=== PATIENT | female | born 1965 | race Caucasian/White ===

== ENCOUNTER 2016-07-22 19:59 | Emergency (ER) | payer OTHER ==
[~2016-07-22 19:59] MED LIST: /AUGM875TA; BIRTH CONTROL PILL; SM I100T
--- NOTE | 2016-07-22 22:15 | EDDOCDS ---
Physician Documentation [facility] Name: Katya Mendoza Age: 51 yrs Sex: Female : 1965 Arrival Date: 07/22/2016 Time: 19:59 Bed TR7 Private MD: Unknown, Family Dr Disposition: 07/22/16 22:05 Discharged to Home/Self Care. Impression: Low back pain - left flank, resolved prior to exam. - Condition is Stable. - Discharge Instructions: Flank Pain, [id number]. - Medication Reconciliation, Local Pharmacy Hours form. - Follow up: Danial Adames; When: Call to arrange an appointment; Reason: Further diagnostic work-up, Recheck today's complaints, Continuance of care. - Problem is new. - Symptoms are resolved. Historical: - Allergies: Codeine Sulfate (Vomit); - Home Meds: 1. none - PMHx: none; - PSHx: bilateral foot surgery; Hernia repair; ureteroscopy; Varicose Vein Repair; - Social history: Smoking status: Patient states was never smoker of tobacco. No barriers to communication noted, The patient speaks fluent French. - Family history: Not pertinent. - : The pt / caregiver states he / she is not on anticoagulants. Home medication list is obtained from the patient. - Exposure Risk Screening:: None identified. 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 3 in. (160.02 cm) (R); Pain 10/10; 20:01 Body Mass Index 23.91 (61.23 kg, 160.02 cm) cmb MDM: 22:01 Dispense Urine Strainer ordered. btw Signatures: Macie EscuderoRN RN rs3 Gumaro Lanza PA PA btw Jackie RazoRN RN ld5 MTDD
--- NOTE | 2016-07-22 22:15 | EDDOCDS ---
[facility] Name: Katya Mendoza Age: 51 yrs Sex: Female : 1965 Arrival Date: 07/22/2016 Time: 19:59 Bed TR7 Private MD: Unknown, Family Dr Diagnosis: Low back pain-left flank, resolved prior to exam Presentation: 07/22 20:03 Presenting complaint: Patient states: left flank pain started 3 hours ago. h/o kidney rs3 stone. cough, cold, vomiting since tuesday. Acute neurological deficits are not present. Mechanism of Injury: No Mechanism of Injury. Adult Sepsis Screening: The patient does not have new or worsening altered mentation. Patient's respiratory rate is less than 22. Systolic blood pressure is greater than 100. Patient has a qSOFA score of 0- Negative Sepsis Screen. Suicide/Homicide risk assessment- the patient denies having any suicidal and/or homicidal ideations and does not present with any other emotional, behavioral or mental health complaints. 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 Transition of care: patient was not received from another setting of care. 20:03 Acuity: JUAN FRANCISCO Level 3 rs3 20:03 Method Of Arrival: Walkin/Carried/Asstd rs3 Triage Assessment: 20:05 General: Appears in no apparent distress. Pain: Location: left mid back. HIV screening rs3 NA for this visit Offered previously. Musculoskeletal: Reports Pain is 10 out of 10 on a pain scale. 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 none - PMHx: none; - PSHx: bilateral foot surgery; Hernia repair; ureteroscopy; Varicose Vein Repair; - Social history: Smoking status: Patient states was never smoker of tobacco. No barriers to communication noted, The patient speaks fluent Pashto. - Family history: Not pertinent. - : The pt / caregiver states he / she is not on anticoagulants. Home medication list is obtained from the patient. - Exposure Risk Screening:: None identified. Screenin:11 Screening information is obtained from the patient. Fall risk: No risks identified. ld5 Assistance ADL's: requires no assistance with activities of daily living. Abuse/DV Screen: The patient / caregiver reports he/she is: not in a situation that causes fear, pain or injury. Nutritional screening: No deficits noted. Advance Directives: Currently, there is no health care proxy. home support is adequate. Assessment: 22:11 General: Appears in no apparent distress, Behavior is appropriate for age. Pain: Denies ld5 pain. Neurological: Level of Consciousness is awake, alert. Respiratory: Airway is patent Respiratory effort is even, unlabored. GI: Denies nausea, vomiting. : Denies burning with urination, pain with urination. Vital Signs: 20:01 BP 145 / 94; Pulse 87; Resp 16; Temp 98.8(O); Pulse Ox 100% ; Weight 61.23 kg (R); cmb Height 5 ft. 3 in. (160.02 cm) (R); Pain 10/10; 20:01 Body Mass Index 23.91 (61.23 kg, 160.02 cm) cmb Vitals: 20:01 Log In Time: July 22, 2016 at 19:59. cmb ED Course: 20:00 Patient visited by Chelita Barnes. cmb 20:00 Patient moved to Waiting cmb 20:01 NO PRIMARY PHYSICIAN, . is Private Physician. cmb 20:01 Unknown, Family Dr is Private Physician. cmb 20:02 Patient moved to Pre RCE cmb 20:04 Triage Initiated rs3 21:31 Patient moved to Triage 3 sew 21:51 Gumaro Lanza PA is PHCP. btw 21:51 Will Salcedo DO is Attending Physician. btw 21:56 Patient visited by Gumaro Lanza PA. btw 22:01 Danial Adames is Referral Physician. btw 22:11 Patient moved to TR7 ld5 22:11 The patient / caregiver is instructed regarding the plan of care and ED course. ld5 22:11 No IV's were initiated during this patient's visit. No procedures done that require ld5 assistance. 22:14 Patient visited by Jackie Razo RN. ld5 Order Results: There are currently no results for this order. Outcome: 22:05 Discharge ordered by Provider. btw 22:11 Discharge Assessment: Patient awake, alert and oriented x 3. No cognitive and/or ld5 functional deficits noted. Patient verbalized understanding of disposition instructions. patient administered narcotics - no. The following High Risk Discharge criteria are identified: None. Discharged to home ambulatory. Condition: stable. Discharge instructions given to patient, Instructed on discharge instructions, follow up and referral plans. Demonstrated understanding of instructions, Pt was receptive of discharge instructions/ teaching. No special radiology studies were completed. Property :Personal belongings accompany Pt. 22:14 Patient left the ED. ld5 Signatures: Macie Escudero RN RN rs3 Gumaro Lanza PA PA btw Dickerson, Laura, RN RN ld5 Chelita Barnes Sarah sew MTDD
[2016-07-23] MEDS ORDERED: VITMTA PO (15:53)
[2016-07-23] MEDS ORDERED: [UNRECOGNIZED DRUG - CODE] PO (15:53)
[2016-07-23] MEDS ORDERED: IBUP60TA PO (15:53)
[2016-07-23] MEDS ORDERED: NORC7.5T PO (18:20)
[2016-07-23] MEDS ORDERED: BACT800T5 PO (18:20)
[2016-07-23] MEDS ORDERED: OXYB5TA PO (18:20)
--- NOTE | 2016-07-24 23:15 | EDDOCDS ---
Nurse's Notes [facility] Name: Katya Mendoza Age: 51 yrs Sex: Female : 1965 Arrival Date: 07/22/2016 Time: 19:59 Bed TR7 Private MD: Unknown, Family Dr Diagnosis: Low back pain-left flank, resolved prior to exam Presentation: 07/22 20:03 Presenting complaint: Patient states: left flank pain started 3 hours ago. h/o kidney rs3 stone. cough, cold, vomiting since tuesday. Acute neurological deficits are not present. Mechanism of Injury: No Mechanism of Injury. Adult Sepsis Screening: The patient does not have new or worsening altered mentation. Patient's respiratory rate is less than 22. Systolic blood pressure is greater than 100. Patient has a qSOFA score of 0- Negative Sepsis Screen. Suicide/Homicide risk assessment- the patient denies having any suicidal and/or homicidal ideations and does not present with any other emotional, behavioral or mental health complaints. 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 Transition of care: patient was not received from another setting of care. 20:03 Acuity: JUAN FRANCISCO Level 3 rs3 20:03 Method Of Arrival: Walkin/Carried/Asstd rs3 Triage Assessment: 20:05 General: Appears in no apparent distress. Pain: Location: left mid back. HIV screening rs3 NA for this visit Offered previously. Musculoskeletal: Reports Pain is 10 out of 10 on a pain scale. 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 none - PMHx: none; - PSHx: bilateral foot surgery; Hernia repair; ureteroscopy; Varicose Vein Repair; - Social history: Smoking status: Patient states was never smoker of tobacco. No barriers to communication noted, The patient speaks fluent Georgian. - Family history: Not pertinent. - : The pt / caregiver states he / she is not on anticoagulants. Home medication list is obtained from the patient. - Exposure Risk Screening:: None identified. Screenin:11 Screening information is obtained from the patient. Fall risk: No risks identified. ld5 Assistance ADL's: requires no assistance with activities of daily living. Abuse/DV Screen: The patient / caregiver reports he/she is: not in a situation that causes fear, pain or injury. Nutritional screening: No deficits noted. Advance Directives: Currently, there is no health care proxy. home support is adequate. Assessment: 22:11 General: Appears in no apparent distress, Behavior is appropriate for age. Pain: Denies ld5 pain. Neurological: Level of Consciousness is awake, alert. Respiratory: Airway is patent Respiratory effort is even, unlabored. GI: Denies nausea, vomiting. : Denies burning with urination, pain with urination. Vital Signs: 20:01 BP 145 / 94; Pulse 87; Resp 16; Temp 98.8(O); Pulse Ox 100% ; Weight 61.23 kg (R); cmb Height 5 ft. 3 in. (160.02 cm) (R); Pain 10/10; 20:01 Body Mass Index 23.91 (61.23 kg, 160.02 cm) cmb Vitals: 20:01 Log In Time: July 22, 2016 at 19:59. cmb ED Course: 20:00 Patient visited by Chelita Barnes. cmb 20:00 Patient moved to Waiting cmb 20:01 NO PRIMARY PHYSICIAN, . is Private Physician. cmb 20:01 Unknown, Family Dr is Private Physician. cmb 20:02 Patient moved to Pre RCE cmb 20:04 Triage Initiated rs3 21:31 Patient moved to Triage 3 sew 21:51 Gumaro Lanza PA is PHCP. btw 21:51 Will Slacedo DO is Attending Physician. btw 21:56 Patient visited by Gumaro Lanza PA. btw 22:01 Danial Adames is Referral Physician. btw 22:11 Patient moved to TR7 ld5 22:11 The patient / caregiver is instructed regarding the plan of care and ED course. ld5 22:11 No IV's were initiated during this patient's visit. No procedures done that require ld5 assistance. 22:14 Patient visited by Jackie Razo RN. ld5 07/23 10:19 T-Sheet-- Draft Copy was scanned into [employer] and attached to record. gb Order Results: There are currently no results for this order. Outcome: 07/22 22:05 Discharge ordered by Provider. btw 22:11 Discharge Assessment: Patient awake, alert and oriented x 3. No cognitive and/or ld5 functional deficits noted. Patient verbalized understanding of disposition instructions. patient administered narcotics - no. The following High Risk Discharge criteria are identified: None. Discharged to home ambulatory. Condition: stable. Discharge instructions given to patient, Instructed on discharge instructions, follow up and referral plans. Demonstrated understanding of instructions, Pt was receptive of discharge instructions/ teaching. No special radiology studies were completed. Property :Personal belongings accompany Pt. 22:14 Patient left the ED. ld5 Signatures: Huma Phan, Reg Reg gb Macie Escudero,RN RN rs3 Gumaro aLnza PA PA btw Dickerson, LauraRN RN ld5 Chelita Barnes Sarah sew Chart Complete MTDMiranda
--- NOTE | 2016-07-24 23:15 | EDDOCDS ---
Physician Documentation [facility] Name: Katya Mendoza Age: 51 yrs Sex: Female : 1965 Arrival Date: 07/22/2016 Time: 19:59 Bed TR7 Private MD: Unknown, Family Dr Disposition: 07/22/16 22:05 Discharged to Home/Self Care. Impression: Low back pain - left flank, resolved prior to exam. - Condition is Stable. - Discharge Instructions: Flank Pain, [id number]. - Medication Reconciliation, Local Pharmacy Hours form. - Follow up: Danial Adames; When: Call to arrange an appointment; Reason: Further diagnostic work-up, Recheck today's complaints, Continuance of care. - Problem is new. - Symptoms are resolved. Historical: - Allergies: Codeine Sulfate (Vomit); - Home Meds: 1. none - PMHx: none; - PSHx: bilateral foot surgery; Hernia repair; ureteroscopy; Varicose Vein Repair; - Social history: Smoking status: Patient states was never smoker of tobacco. No barriers to communication noted, The patient speaks fluent Yoruba. - Family history: Not pertinent. - : The pt / caregiver states he / she is not on anticoagulants. Home medication list is obtained from the patient. - Exposure Risk Screening:: None identified. 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 3 in. (160.02 cm) (R); Pain 10/10; 20:01 Body Mass Index 23.91 (61.23 kg, 160.02 cm) cmb MDM: 22:01 Dispense Urine Strainer ordered. btw 22:20 Financial registration complete. [email or web address] 07/23 10:19 T-Sheet-- Draft Copy was scanned into [employer] and attached to record. gb Signatures: Huma Phan, Reg Reg gb Macie Escudero RN RN rs3 Gumaro Lanza PA PA btw Jackie Razo RN RN ld5 Angie Garcia, Reg Reg ks16 The chart was reviewed and I authenticate all verbal orders and agree with the evaluation and treatment provided.Attachments: 10:19 T-Sheet-- Draft Copy gb Chart Complete MTDD
--- NOTE | 2016-07-24 23:15 | EDDOCDS ---
Physician Documentation [facility] Name: Katya Mendoza Age: 51 yrs Sex: Female : 1965 Arrival Date: 07/22/2016 Time: 19:59 Bed TR7 Private MD: Unknown, Family Dr Disposition: 07/22/16 22:05 Discharged to Home/Self Care. Impression: Low back pain - left flank, resolved prior to exam. - Condition is Stable. - Discharge Instructions: Flank Pain, [id number]. - Medication Reconciliation, Local Pharmacy Hours form. - Follow up: Danial Adames; When: Call to arrange an appointment; Reason: Further diagnostic work-up, Recheck today's complaints, Continuance of care. - Problem is new. - Symptoms are resolved. Historical: - Allergies: Codeine Sulfate (Vomit); - Home Meds: 1. none - PMHx: none; - PSHx: bilateral foot surgery; Hernia repair; ureteroscopy; Varicose Vein Repair; - Social history: Smoking status: Patient states was never smoker of tobacco. No barriers to communication noted, The patient speaks fluent Uzbek. - Family history: Not pertinent. - : The pt / caregiver states he / she is not on anticoagulants. Home medication list is obtained from the patient. - Exposure Risk Screening:: None identified. 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 3 in. (160.02 cm) (R); Pain 10/10; 20:01 Body Mass Index 23.91 (61.23 kg, 160.02 cm) cmb MDM: 22:01 Dispense Urine Strainer ordered. btw 22:20 Financial registration complete. [email or web address] 07/23 10:19 T-Sheet-- Draft Copy was scanned into [employer] and attached to record. gb Signatures: Huma Phan, Reg Reg gb Macie Escudero RN RN rs3 Gumaro Lanza PA PA btw Jackie Razo RN RN ld5 Angie Garcia, Reg Reg ks16 The chart was reviewed and I authenticate all verbal orders and agree with the evaluation and treatment provided.Attachments: 10:19 T-Sheet-- Draft Copy gb Chart Complete MTDD
== END 2016-07-22 22:14 | disposition home or self-care (01) ==
LOC: M ED 19:59
DX: R10.9 Unspecified abdominal pain (principal); Z87.442 Personal history of urinary calculi; Z88.5 Allergy status to narcotic agent

== ENCOUNTER → 2016-07-23 | Day surgery (SDC) | payer OTHER ==
[~2016-07-23] VITALS: Ht 160 cm; Wt 61.2 kg
[~2016-07-23] MED LIST changes: +BACT800T5 PO; +CONRAY-60 60% 50ML VIAL (Q9961) As Ordered ONE; +CONRAY-60 60% 50ML VIAL (Q9961) XX ONE; +IBUP60TA PO; +KETOROLAC 30 MG/ML VIAL (J1885) As Ordered ONE; +LIDOCAINE 2% INJ 100 MG/5 ML SDV (FOR ANES.) As Ordered ONE; +LR 1,000 ML IV SCH; +LevoFLOXacin 500 MG in APPROPRIATE DILUENT 1 EA IV ONE; +LevoFLOXacin(LEVAQUIN)500 MG/100 ML BAG (J1956) As Ordered ONE; +METOCLOPRAMIDE INJ 10MG/2ML VIAL (J2765) As Ordered ONE; +MIDAZOLAM INJ 2 MG/2 ML VIAL (J2250) As Ordered ONE; +MORPHINE 4 MG/ML 1ML SYRINGE As Ordered ONE; +NORC7.5T PO; +ONDANSETRON 4MG/2ML VIAL (J2405) As Ordered ONE; +ONDANSETRON 4MG/2ML VIAL (J2405) IV PRN; +OXYB5TA PO; +PERCOCET 5MG/325MG TAB As Ordered ONE; +PERCOCET 5MG/325MG TAB PO PRN; +PROPOFOL 200 MG/20 ML VIAL As Ordered ONE; +VITMTA PO; +[UNRECOGNIZED DRUG - CODE] PO; +fentaNYL 100 MCG/2 ML INJECTION (J3010) As Ordered ONE; +fentaNYL 100 MCG/2 ML INJECTION (J3010) IV PRN
[2016-07-23 13:54] LABS: BASO % 0.5 % (0.0-1.0); EOS # 0.1 K/mm3 (0.0-0.50); EOS % 0.6 % (0.0-3.0); LARGE UNSTAINED CELL # 0.3 K/mm3 (0.0-0.4); LARGE UNSTAINED CELL % 2.7 % (0.0-4.0); LYMPH # 1.5 K/mm3 (1.5-4.5); LYMPH % 14.8 % (24.0-44.0); MEAN CORPUSCULAR HEMOGLOBIN 32.6 pg (27.0-33.0); MEAN CORPUSCULAR HGB CONC 35.8 g/dl (32.0-36.5); MEAN CORPUSCULAR VOLUME 91.1 fl (80.0-96.0); MONO # 0.4 K/mm3 (0.0-0.8); MONO % 4.2 % (0.0-5.0); NEUTROPHILS # 7.9 K/mm3 (1.8-7.7); NEUTROPHILS % 77.3 % (36.0-66.0); PLATELET COUNT, AUTOMATED 228 k/mm3 (150-450); WHITE BLOOD COUNT 10.2 K/mm3 (4.0-10.0)
[2016-07-23 13:59] LABS: ANION GAP 9 MEQ/L (8-16); BLOOD UREA NITROGEN 21 MG/DL (7-18); CALCIUM LEVEL 8.9 MG/DL (8.5-10.1); CARBON DIOXIDE LEVEL 28 MEQ/L (21-32); CHLORIDE LEVEL 103 MEQ/L (98-107); CREATININE FOR GFR 0.89 MG/DL (0.55-1.02); GLOMERULAR FILTRATION RATE > 60.0 (>58); GLUCOSE, FASTING 101 MG/DL (70-105); POTASSIUM SERUM 3.3 MEQ/L (3.5-5.1); SODIUM LEVEL 140 MEQ/L (136-145)
--- NOTE | 2016-07-23 14:29 | REP ---
CT of the abdomen and pelvis without contrast, 07/23/2016 Indication: left flank pain, renal colic Comparison: CT abdomen pelvis 07/27/2013 Findings: Lung bases are clear bilaterally. Liver, spleen, pancreas are normal. Gallbladder without stones or wall thickening. There is no biliary dilatation. Adrenal glands are normal. There is moderate left hydronephrosis and hydroureter secondary to a 9 mm obstructing calculus the left lower pelvis, above the ureteral vesicle junction. Additionally there are multiple additional lower pelvic calculi, left greater than right which are likely phleboliths although additional small obstructing left ureteral calculi just above the left ureteral vesicle junction not excluded. There is a left perinephric stranding which represents interval change. Mild right renal pelviectasis is noted. However there are no obstructing right ureteral calculi. 3 mm calculus in the right upper pelvis on image 92 series 201 likely represents an appendicolith adjacent to right ureter and is stable. There is a small hiatal hernia of 3 cm diameter. Stomach and small bowel are within normal limits. The terminal ileum and the appendix are without inflammation. Abdominal aorta is of normal course and caliber Bladder is partially contracted. The uterus is within normal limits. There are no adnexal masses. There has been previous ventral hernia repair with a small mesh. There is no free air or ascites. Sclerosis is identified within the right ilium, abutting right SI joint consistent with nonspecific assymetric sacro ileitis . Impression 1. Edematous changes left kidney and perinephric stranding. Moderate to large left hydronephrosis and hydroureter secondary to a 9 mm obstructing calculus in the left lower pelvis above ureterovesical junction. Additionally there are smaller left lower pelvic calculi ,likely phleboliths, although a small distal ureteral calculus cannot be completely excluded. 2 .Mild right renal pelviectasis without obstructing right ureteral calculus. 3. Multiple appendicoliths are seen within the appendiceal lumen which lies adjacent to the right ureter . Signed by Leila Leon MD 07/23/2016 02:21 P
[2016-07-23 14:35] LABS: CALCIUM OXALATE CRYSTALS SMALL
--- NOTE | 2016-07-23 16:48 | EDDOCDS ---
Physician Documentation [facility] Name: Katya Mendoza Age: 51 yrs Sex: Female : 1965 Arrival Date: 07/23/2016 Time: 12:03 Bed I7 / 29 Private MD: NO PRIMARY PHYSICIAN, . Disposition: 07/23/16 15:35 Hospitalization ordered by Danial Adames for Inpatient Admission. Preliminary diagnosis is Hydronephrosis with renal and ureteral calculous obstruction - left 9mm UVJ obstructing stone. - Bed requested for Admit. - Status is Inpatient Admission. jmk - Condition is Stable. - Problem is new. - Symptoms are unchanged. Historical: - Allergies: Codeine Sulfate (Vomit); - Home Meds: 1. none - PMHx: Kidney stones; - PSHx: bilateral foot surgery; Hernia repair; ureteroscopy; Varicose Vein Repair; - Social history: Smoking status: Patient states was never smoker of tobacco. No barriers to communication noted, The patient speaks fluent Occitan, Speaks appropriately for age. - Family history: Not pertinent. - : The pt / caregiver states he / she is not on anticoagulants. Home medication list is obtained from the patient. - Exposure Risk Screening:: None identified. 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 3 in. (160.02 cm) (R); 12:38 BP 156 / 96 RA Sitting (man/lg); jb5 15:05 BP 132 / 82; Pulse 73; Resp 18; Temp 98.4; Pulse Ox 98% on R/A; Pain 5/10; nb2 16:28 BP 146 / 86; Pulse 86; Resp 16; Temp 97.4(O); Pulse Ox 100% ; jf3 12:05 Body Mass Index 23.91 (61.23 kg, 160.02 cm) dd6 MDM: 12:36 Recheck B/P ordered. dt4 12:37 Urinalysis Ordered. EDMS 12:37 Urine Culture Ordered. EDMS 13:09 IV Saline Lock ordered. ar2 13:09 NS 0.9% 1000 ml IV at bolus once ordered. ar2 13:09 ketorolac 30 mg IVP once ordered. ar2 13:09 Ondansetron 4 mg IVP once ordered. ar2 13:10 CT ABD & PELVIS: No Contrast Ordered. EDMS 13:10 CBC with Diff Ordered. EDMS 13:10 MED Profile Ordered. EDMS 13:12 Financial registration complete. lg 13:13 [facility] Payment Agreement was scanned into [employer] and attached to record. lg 14:30 CBC with Diff Reviewed. ar2 14:30 MED Profile Reviewed. ar2 14:32 morphine 4 mg IVP once ordered. ar2 14:43 Urinalysis Reviewed. ar2 14:43 CT ABD & PELVIS: No Contrast Reviewed. ar2 15:37 BED REQUEST+ADM ordered. EDMS 16:28 NPO FOR TEST/PROCEDURE ordered. EDMS 16:38 Admission Orders was scanned into [employer] and attached to record. lbd 16:44 levofloxacin 500 mg IVPB once over 60 mins ordered. k Administered Medications: 13:29 Drug: ketorolac 30 mg [ketorolac 30 mg/mL (1 mL) injection solution (1 mL)] Route: IVP; [facility] Site: left antecubital; 13:29 Drug: Ondansetron 4 mg Route: IVP; Site: left antecubital; edithk 13:33 Drug: NS 0.9% 1000 ml Route: IV; Rate: bolus; Site: left antecubital; jmk 14:43 Drug: morphine 4 mg Route: IVP; Site: left antecubital; jmk 16:44 Drug: levofloxacin 500 mg Route: IVPB; Infused Over: 60 mins; Site: left antecubital; [facility] Signatures: Dispatcher [employer] EDMS Nu Huber, [facility] lbd Arturo Quinn RN RN jmk Michelson, Staci, RN RN srm Ganter, LoriLee, Milan Yates lg Oscar Arnett PA-C PA-C ar2 Clare Foster PA-C PARodolfo dt4 The chart was reviewed and I authenticate all verbal orders and agree with the evaluation and treatment provided.Attachments: 13:13 [facility] Payment Agreement lg 16:38 Admission Orders lbd MTDD
--- NOTE | 2016-07-23 16:48 | EDDOCDS ---
Nurse's Notes [facility] Name: Katya Mendoza Age: 51 yrs Sex: Female : 1965 Arrival Date: 07/23/2016 Time: 12:03 Bed I7 / 29 Private MD: NO PRIMARY PHYSICIAN, . Diagnosis: Hydronephrosis with renal and ureteral calculous obstruction-left 9mm UVJ obstructing stone Presentation: 07/23 12:16 Presenting complaint: Patient states: pain in left side- seen here last night for same. srm dx kidney stone. pt states by the time she got to see provider pain had gone away. Acute neurological deficits are not present. Mechanism of Injury: No Mechanism of Injury. Adult Sepsis Screening: The patient does not have new or worsening altered mentation. Patient's respiratory rate is less than 22. Systolic blood pressure is greater than 100. Patient has a qSOFA score of 0- Negative Sepsis Screen. Acuity level changed due to. Suicide/Homicide risk assessment- the patient denies having any suicidal and/or homicidal ideations and does not present with any other emotional, behavioral or mental health complaints. Status: Patient is not a tax services specialist or dependent. Transition of care: patient was not received from another setting of care. 12:16 Acuity: JUAN FRANCISCO Level 3 srm 12:16 Method Of Arrival: Walkin/Carried/Asstd srm Triage Assessment: 12:19 General: Appears in no apparent distress, Behavior is appropriate for age, cooperative. srm Pain: Pain currently is 10 out of 10 on a pain scale. HIV screening NA for this visit Offered previously. Musculoskeletal: Reports left flank pain. 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 none - PMHx: Kidney stones; - PSHx: bilateral foot surgery; Hernia repair; ureteroscopy; Varicose Vein Repair; - Social history: Smoking status: Patient states was never smoker of tobacco. No barriers to communication noted, The patient speaks fluent Uzbek, Speaks appropriately for age. - Family history: Not pertinent. - : The pt / caregiver states he / she is not on anticoagulants. Home medication list is obtained from the patient. - Exposure Risk Screening:: None identified. Screenin:30 Screening information is obtained from the patient. Fall risk: No risks identified. jmk Assistance ADL's: requires no assistance with activities of daily living. Abuse/DV Screen: The patient / caregiver reports he/she is:. Nutritional screening: No deficits noted. Advance Directives: Currently, there is no health care proxy. There is no active DNR order. There is no living will. There is no Power of Health And Safety Inspector. Advance directive information has not previously been placed in an [facility] medical record. home support is adequate. Assessment: 13:30 General: Appears in no apparent distress, skin warm and dry, color satisfactory. moist jmk pink oral mucosa. abd soft and non distended with bowel sounds present x 4. Indicates left flank pain. GI: Abdomen is flat, non- distended Bowel sounds present X 4 quads. 14:16 Adult Sepsis Screening: The patient does not have new or worsening altered mentation. kc3 Patient's respiratory rate is less than 22. Systolic blood pressure is greater than 100. Patient has a qSOFA score of 0- Negative Sepsis Screen. 15:07 General: Appears states pain has decreased to 5/10. jmk 16:29 General: Appears states pain is still 5/10, but presently with very casual jf3 presentation. IV patent to left AC space. to OR. Vital Signs: 12:05 BP 175 / 107; Pulse 73; Resp 18 S; Temp 97.1(O); Pulse Ox 100% on R/A; Weight 61.23 kg dd6 (R); Height 5 ft. 3 in. (160.02 cm) (R); 12:38 BP 156 / 96 RA Sitting (man/lg); jb5 15:05 BP 132 / 82; Pulse 73; Resp 18; Temp 98.4; Pulse Ox 98% on R/A; Pain 5/10; nb2 16:28 BP 146 / 86; Pulse 86; Resp 16; Temp 97.4(O); Pulse Ox 100% ; jf3 12:05 Body Mass Index 23.91 (61.23 kg, 160.02 cm) dd6 Vitals: 12:05 Log In Time: July 23, 2016 at 12:03. dd6 ED Course: 12:04 Patient visited by Martinez Muñoz PCA. dd6 12:04 Patient moved to Waiting dd6 12:05 NO PRIMARY PHYSICIAN, . is Private Physician. dd6 12:05 Patient moved to Pre RCE dd6 12:18 Triage Initiated srm 12:33 Patient moved to Triage 1 dy 12:35 Patient visited by Lisseth Castillo PCA. jb5 12:38 Patient visited by Lisseth Castillo PCA. jb5 13:02 Oscar Arnett [facility]. ar2 13:02 Michaela Robles MD is Attending Physician. ar2 13:02 Patient visited by Oscar Arnett PA-C. ar2 13:12 Patient moved to I7 dy 13:13 [facility] Payment Agreement was scanned into Sincerely and attached to record. lg 13:29 MED Profile Sent. jmk 13:29 CBC with Diff Sent. jmk 13:30 The patient / caregiver is instructed regarding the plan of care and ED course. jmk 13:30 Inserted saline lock: 20 gauge in left antecubital area. jmk 13:32 Patient visited by Arturo Quinn RN. jmk 14:10 Urine Culture Sent. nb2 14:10 Urinalysis Sent. nb2 14:38 CT ABD & PELVIS: No Contrast Returned. EDMS 14:41 Patient visited by Giuliana Milligan. nb2 15:05 Patient visited by Giuliana Milligan. nb2 15:34 Danial Adames is Hospitalizing Provider. ar2 16:38 Admission Orders was scanned into Sincerely and attached to record. lbd Administered Medications: 13:29 Drug: ketorolac 30 mg [ketorolac 30 mg/mL (1 mL) injection solution (1 mL)] Route: IVP; justo Site: left antecubital; 13:29 Drug: Ondansetron 4 mg Route: IVP; Site: left antecubital; edithk 13:33 Drug: NS 0.9% 1000 ml Route: IV; Rate: bolus; Site: left antecubital; edithk 14:43 Drug: morphine 4 mg Route: IVP; Site: left antecubital; edithk 16:44 Drug: levofloxacin 500 mg Route: IVPB; Infused Over: 60 mins; Site: left antecubital; edithk Intake: 16:28 IV: 1000.00ml (NS); Total: 1000.00ml. jf3 Order Results: Lab Order: Urinalysis; SPEC'M 07/23/16 14:06 Test: APPEARANCE, URINE; Value: CLEAR; Range: CLEAR; Status: F Test: COLOR, URINE; Value: YELLOW; Range: YELLOW; Status: F Test: PH,URINE; Value: 5.0; Range: 5.0-9.0; Units: UNITS; Status: F Test: SPECIFIC GRAVITY URINE AUTO; Value: 1.020; Range: 1.002-1.035; Status: F Test: PROTEIN, URINE AUTO; Value: 1+; Range: NEGATIVE; Abnormal: Above high normal; Units: mg/dL; Status: F Test: GLUCOSE, URINE (UA) AUTO; Value: NEGATIVE; Range: NEGATIVE; Units: mg/dL; Status: F Test: KETONE, URINE AUTO; Value: TRACE; Range: NEGATIVE; Abnormal: Above high normal; Units: mg/dL; Status: F Test: UROBILINOGEN, URINE AUTO; Value: 0.2; Range: 0.0-2.0; Units: mg/dL; Status: F Test: BILIRUBIN, URINE AUTO; Value: NEGATIVE; Range: NEGATIVE; Status: F Test: NITRITE, URINE AUTO; Value: NEGATIVE; Range: NEGATIVE; Status: F Test: LEUKOCYTE ESTERASE, URINE AUTO; Value: NEGATIVE; Range: NEGATIVE; Status: F Test: BLOOD, URINE BLOOD; Value: 2+; Range: NEGATIVE; Abnormal: Above high normal; Status: F Test: WBC, URINE AUTO; Value: 3; Range: 0-3; Units: /HPF; Status: F Test: RBC, URINE AUTO; Value: 61; Range: 0-3; Abnormal: Above high normal; Units: /HPF; Status: F Test: BACTERIA, URINE AUTO; Value: NEGATIVE; Range: NEGATIVE; Status: F Test: SQUAMOUS EPITHELIAL CELL UR AU; Value: 0; Range: 0-6; Units: /HPF; Status: F Test: MUCUS, URINE; Value: SMALL; Range: NEGATIVE; Status: F Test: HYALINE CAST, URINE AUTO; Value: 0; Range: 0-1; Units: /LPF; Status: F Test: CALCIUM OXALATE CRYSTALS; Value: SMALL; Range: NONE; Status: F Lab Order: CBC with Diff; SPEC'M 07/23/16 13:27 Test: WHITE BLOOD COUNT; Value: 10.2; Range: 4.0-10.0; Abnormal: Above high normal; Units: K/mm3; Status: F Test: RED BLOOD COUNT; Value: 4.68; Range: 4.00-5.40; Units: M/mm3; Status: F Test: HEMOGLOBIN; Value: 15.2; Range: 12.0-16.0; Units: g/dl; Status: F Test: HEMATOCRIT; Value: 42.6; Range: 36.0-47.0; Units: %; Status: F Test: MEAN CORPUSCULAR VOLUME; Value: 91.1; Range: 80.0-96.0; Units: fl; Status: F Test: MEAN CORPUSCULAR HEMOGLOBIN; Value: 32.6; Range: 27.0-33.0; Units: pg; Status: F Test: MEAN CORPUSCULAR HGB CONC; Value: 35.8; Range: 32.0-36.5; Units: g/dl; Status: F Test: RED CELL DISTRIBUTION WIDTH; Value: 12.0; Range: 11.5-14.5; Units: %; Status: F Test: PLATELET COUNT, AUTOMATED; Value: 228; Range: 150-450; Units: k/mm3; Status: F Test: NEUTROPHILS %; Value: 77.3; Range: 36.0-66.0; Abnormal: Above high normal; Units: %; Status: F Test: LYMPH %; Value: 14.8; Range: 24.0-44.0; Abnormal: Below low normal; Units: %; Status: F Test: MONO %; Value: 4.2; Range: 0.0-5.0; Units: %; Status: F Test: EOS %; Value: 0.6; Range: 0.0-3.0; Units: %; Status: F Test: BASO %; Value: 0.5; Range: 0.0-1.0; Units: %; Status: F Test: LARGE UNSTAINED CELL %; Value: 2.7; Range: 0.0-4.0; Units: %; Status: F Test: NEUTROPHILS #; Value: 7.9; Range: 1.8-7.7; Abnormal: Above high normal; Units: K/mm3; Status: F Test: LYMPH #; Value: 1.5; Range: 1.5-4.5; Units: K/mm3; Status: F Test: MONO #; Value: 0.4; Range: 0.0-0.8; Units: K/mm3; Status: F Test: EOS #; Value: 0.1; Range: 0.0-0.50; Units: K/mm3; Status: F Test: BASO #; Value: 0.0; Range: 0.0-0.2; Units: K/mm3; Status: F Test: LARGE UNSTAINED CELL #; Value: 0.3; Range: 0.0-0.4; Units: K/mm3; Status: F Lab Order: MED Profile; SPEC'M 07/23/16 13:27 Test: GLUCOSE, FASTING; Value: 101; Range: 70-105; Units: MG/DL; Status: F Test: BLOOD UREA NITROGEN; Value: 21; Range: 7-18; Abnormal: Above high normal; Units: MG/DL; Status: F Test: CREATININE FOR GFR; Value: 0.89; Range: 0.55-1.02; Units: MG/DL; Status: F Test: GLOMERULAR FILTRATION RATE; Value: > 60.0; Range: >58; Status: F Test: SODIUM LEVEL; Value: 140; Range: 136-145; Units: MEQ/L; Status: F Test: POTASSIUM SERUM; Value: 3.3; Range: 3.5-5.1; Abnormal: Below low normal; Units: MEQ/L; Status: F Test: CHLORIDE LEVEL; Value: 103; Range: 98-107; Units: MEQ/L; Status: F Test: CARBON DIOXIDE LEVEL; Value: 28; Range: 21-32; Units: MEQ/L; Status: F Test: ANION GAP; Value: 9; Range: 8-16; Units: MEQ/L; Status: F Test: CALCIUM LEVEL; Value: 8.9; Range: 8.5-10.1; Units: MG/DL; Status: F Test Note: ; Units are mL/min/1.73 m2 Chronic Kidney Disease Staging per NKF: Stage I & II GFR >=60 Normal to Mildly Decreased Stage III GFR 30-59 Moderately Decreased Stage IV GFR 15-29 Severely Decreased Stage V GFR <15 Very Little GFR Left ESRD GFR <15 on TECHNICAL SERVICES REPRESENTATIVE Radiology Order: CT ABD & PELVIS: No Contrast Test: CT ABD & PELVIS: No Contrast REASON FOR EXAMINATION: left flank pain, renal colic; CT of the abdomen and pelvis without contrast, 07/23/2016; ; Indication: left flank pain, renal colic; ; Comparison: CT abdomen pelvis 07/27/2013; ; Findings: Lung bases are clear bilaterally.; ; Liver, spleen, pancreas are normal. Gallbladder without stones or wall; thickening. There is no biliary dilatation. Adrenal glands are normal. There; is moderate left hydronephrosis and hydroureter secondary to a 9 mm obstructing; calculus the left lower pelvis, above the ureteral vesicle junction.; Additionally there are multiple additional lower pelvic calculi, left greater; than right which are likely phleboliths although additional small obstructing; left ureteral calculi just above the left ureteral vesicle junction not excluded.; There is a left perinephric stranding which represents interval change. Mild; right renal pelviectasis is noted. However there are no obstructing right; ureteral calculi. 3 mm calculus in the right upper pelvis on image 92 series 201; likely represents an appendicolith adjacent to right ureter and is stable. There; is a small hiatal hernia of 3 cm diameter. Stomach and small bowel are within; normal limits. The terminal ileum and the appendix are without inflammation.; ; Abdominal aorta is of normal course and caliber; ; Bladder is partially contracted. The uterus is within normal limits. There are; no adnexal masses.; ; There has been previous ventral hernia repair with a small mesh. There is no; free air or ascites. Sclerosis is identified within the right ilium, abutting; right SI joint consistent with nonspecific assymetric sacro ileitis .; ; Impression; 1. Edematous changes left kidney and perinephric stranding. Moderate to large; left hydronephrosis and hydroureter secondary to a 9 mm obstructing calculus in; the left lower pelvis above ureterovesical junction. Additionally there are; smaller left lower pelvic calculi ,likely phleboliths, although a small distal; ureteral calculus cannot be completely excluded.; ; 2 .Mild right renal pelviectasis without obstructing right ureteral calculus.; 3. Multiple appendicoliths are seen within the appendiceal lumen which lies; adjacent to the right ureter .; ; ; ; ; Signed by; Leila Leon MD 07/23/2016 02:21 P; Outcome: 15:35 Decision to Hospitalize by Provider. ar2 16:47 Patient left the ED. justo Signatures: Dispatcher [employer] EDMS Nu Huber, Inclusion Teacher Unit lbd Arturo Quinn,RN RN Shadia Nichole, RN RN Alon Looney, Reg Reg lg Andriy Sagastume, RN RN Lisseth Parr, BUSINESS CENTER ATTENDANT BUSINESS CENTER ATTENDANT jb5 Oscar Arnett, PA-C PA-C ar2 Martinez Muñoz, BUSINESS CENTER ATTENDANT BUSINESS CENTER ATTENDANT dd6 Laila Gusman,RN RN kc3 Cristopher Osborne,RN RN jf3 Giuliana Milligan2 MTDD
--- NOTE | 2016-07-23 16:59 | HPEPDOC ---
General Date of Admission 07/23/16 Chief Complaint The patient is a 51-year-old female admitted with a one-day history of left flank pain. Source: Patient Exam Limitations: No limitations Timing/Duration: 24 hours, Intermittent Severity: Severe Associated Symptoms: Denies Symptoms History of Present Illness The patient is a 51-year-old female admitted with a one-day history of left flank pain. It was fairly severe last night and approached 10 out of 10. Her pain then away resumed again today. She came back to the emergency room at noon. She was afebrile and had a normal white blood cell count. CT urogram showed a 9 mm distal left ureteral stone with hydroureter and hydronephrosis. She has had multiple stones in the past and has been treated with ESWL on several occasions. She does not ever recall having ureteroscopic extraction but says she might have. She denies any nausea vomiting fever or chills on this occasion. She does not want her pain to return to the level that wasn't wants treatment if at all possible today. Home Medications Scheduled Multivitamins *SMC STOCKED* (Thera M Plus *SMC STOCKED*) 1 Tab Tab 1 TAB PO DAILY (Reported) Trimethoprim/Sulfamethoxazole (Bactrim Ds 800-160 mg) 1 Tab Tab 1 TAB PO BID Scheduled PRN (Daytime Multi Symptom Col 10-5-325 mg) 1 Cap Cap 2 CAP PO PRN COLD SYMTPOMS ( Reported) Acetaminophen/Hydrocodone ([place] 7.5-325 mg) 1 Tab Tab 1-2 TAB PO Q4HP PRN PRN BLADDER SPASM Ibuprofen (Ibuprofen) 600 Mg Tab 600 MG PO PRN PAIN (Reported) Oxybutynin Chloride (Oxybutynin Chloride) 5 Mg Tab 5 MG PO TIDP PRN PRN BLADDER SPASM Allergies Coded Allergies: Codeine (Verified Adverse Reaction, Unknown, N/V, 10/12/12) Past Medical History Medical History Multiple stones. Some passed spontaneously some requiring intervention. Varicose veins. Surgical History Multiple ESWL Leg surgery for varicose veins Foot surgery for plantar's warts Family History Significant Family History: Diabetes Social History * Smoker: non-smoker Alcohol: denies Drugs: denies Recent Travel/Sick Contacts: Denies: Recent sick contacts, Recent travel Psychosocial History: No pertinent psych hx Review of Symptoms Constitutional: Denies: Chills, Fever, Night Sweats Eyes: Denies: Pain, Vision change ENT: Denies: Dysphagia, Ear Pain, Head Aches Skin: Denies: Breakdown, Lesions, Rash Pulmonary: Denies: Cough, Dyspnea Cardiovascular: Denies: Chest Pain, Lt Headedness, Orthopnea, Palpitations, Paroxysmal Noc. Dyspnea Gastrointestinal: Denies: Abdominal Pain, Diarrhea, Nausea, Vomiting Genitourinary: Denies: Dysuria, Frequency, Incontinence, Retention Hematologic: Denies: Bleeding Excessively, Bruising Musculoskeletal: Denies: Back Pain, Joint Pain, Muscle Pain, Neck Pain, Spasms Neurological: Denies: Change in speech, Confusion, Numbness, Weakness Psych: Reports: Mood Normal, Denies: Depression, Memory Issues Other systems Left flank pain Physical Examination Eye Exam: Positive: Conjunctiva & lids normal, EOMI, PERRLA, Negative: Sclera icteric ENT Exam: Positive: Atraumatic, Mucous membr. moist/pink, Pharynx Normal Neck Exam: Positive: Supple, Negative: JVD, thyromegaly Chest Exam: Positive: Clear to auscultation, Normal air movement Heart Exam: Positive: Normal S1, Normal S2, Rate Normal, Regular Rhythm, Negative: Murmurs, Rubs Telemetry: Positive: No significant arrhythmia Abdomen Exam: Positive: Normal bowel sounds, Soft, Tenderness (minor left lower quadrant and suprapubic area), Negative: Hepatospenomegaly Female Exam: Positive: Nl Ext Genitalia, Negative: Discharge, Lesions, Odor, Tenderness Extremity Exam: Positive: Normal pulses, Negative: Clubbing, Cyanosis, Edema Skin Exam: Positive: Nl turgor and temperature, Negative: Breakdown, Lesion Vital Signs temp 97.5 pulse 76 bp 123/64 Laboratory Data Labs 24H Laboratory Tests 2 07/23/16 13:27: Anion Gap 9, White Blood Count 10.2H, Red Blood Count 4.68, Hemoglobin 15.2, Hematocrit 42.6, Mean Corpuscular Volume 91.1, Mean Corpuscular Hemoglobin 32.6 , Mean Corpuscular Hemoglobin Concent 35.8, Red Cell Distribution Width 12.0, Platelet Count 228, Neutrophils (%) (Auto) 77.3H, Lymphocytes (%) (Auto) 14.8L, Monocytes (%) (Auto) 4.2, Eosinophils (%) (Auto) 0.6, Basophils (%) (Auto) 0.5, Neutrophils # (Auto) 7.9H, Lymphocytes # (Auto) 1.5, Monocytes # (Auto) 0.4, Eosinophils # (Auto) 0.1, Basophils # (Auto) 0.0, Blood Urea Nitrogen 21H, Creatinine 0.89, Sodium Level 140, Potassium Level 3.3L, Chloride Level 103, Carbon Dioxide Level 28, Calcium Level 8.9, Glomerular Filtration Rate > 60.0, Large Unclassified Cells # 0.3, Large Unclassified Cells % 2.7 07/23/16 14:06: Urine Amorphous Sediment , Urine Appearance CLEAR, Urine Color YELLOW, Urine pH 5.0, Urine Specific [place] 1.020, Urine Protein 1+H, Urine Glucose (UA) NEGATIVE, Urine Ketones TRACEH, Urine Urobilinogen 0.2, Urine Bilirubin NEGATIVE , Urine Leukocyte Esterase NEGATIVE, Urine Bacteria (Auto) NEGATIVE, Urine Blood 2+H, Urine Calcium Carbonate Cryst(Auto) , Urine Calcium Oxalate Cryst ( Auto) SMALL, Urine Calcium Phosphate Annita (Auto) , Urine Cellular Casts , Urine Cystine Crystals , Urine Granular Casts (Auto) , Urine Hyaline Casts (Auto) 0, Urine Leucine Crystals , Urine Mucus (Auto) SMALL, Urine Nitrite NEGATIVE, Urine Oval Fat Bodies (Auto) , Urine RBC (Auto) 61H, Urine Renal Epithelial Cells , Urine Sperm (Auto) , Urine Squamous Epithelial Cells 0, Urine Transitional Epithelial Cells , Urine Trichomonas (Auto) , Urine Triple Phosphate Cryst (Auto) , Urine Tyrosine Crystals , Urine Uric Acid Crystals ( Auto) , Urine WBC (Auto) 3, Urine Waxy Casts (Auto) , Urine Yeast-Like Cells ( Auto) CBC/BMP Laboratory Tests 07/23/16 13:27 Calcium Level 8.9, Red Blood Count 4.68, Mean Corpuscular Volume 91.1, Mean Corpuscular Hemoglobin 32.6, Mean Corpuscular Hemoglobin Concent 35.8, Red Cell Distribution Width 12.0, Neutrophils (%) (Auto) 77.3 H, Lymphocytes (%) (Auto) 14.8 L, Monocytes (%) (Auto) 4.2, Eosinophils (%) (Auto) 0.6, Basophils (%) ( Auto) 0.5, Neutrophils # (Auto) 7.9 H, Lymphocytes # (Auto) 1.5, Monocytes # ( Auto) 0.4, Eosinophils # (Auto) 0.1, Basophils # (Auto) 0.0 Microbiology Microbiology 07/23/16 Urine Culture, Received Pending RAD Interpretation STUDY: CT urogram RAD Interpretation: Other Result Comments: (9 mm distal left ureteral stone with hydronephrosis and hydroureter with multiple nonobstructing stones within the renal pelvis) Assessment/Plan Problems: (1) Renal calculus, left Status: Acute (2) Left ureteral calculus Status: Acute Plan / VTE VTE Prophylaxis Ordered?: Yes Plan Plan She's been nothing by mouth since 7:30 this morning. We'll take her to the operating room for left antegrade pyelogram, left ureteroscopy, laser ablation of stone, stone basket manipulation of fragments and left ureteral stent placement. She will likely revealed to go home following the procedure and will follow-up with a local urologist for stent removal in 1 week for definitive treatment of nonobstructing stones. Disposition To the operating room and then home as above. DARLENE PRIETO MD Jul 23, 2016 16:59
[2016-07-23 19:50] VITALS: BP 128/84
--- NOTE | 2016-07-25 17:47 | EDDOCDS ---
Nurse's Notes [facility] Name: Katya Mendoza Age: 51 yrs Sex: Female : 1965 Arrival Date: 07/23/2016 Time: 12:03 Bed I7 / 29 Private MD: NO PRIMARY PHYSICIAN, . Diagnosis: Hydronephrosis with renal and ureteral calculous obstruction-left 9mm UVJ obstructing stone Presentation: 07/23 12:16 Presenting complaint: Patient states: pain in left side- seen here last night for same. srm dx kidney stone. pt states by the time she got to see provider pain had gone away. Acute neurological deficits are not present. Mechanism of Injury: No Mechanism of Injury. Adult Sepsis Screening: The patient does not have new or worsening altered mentation. Patient's respiratory rate is less than 22. Systolic blood pressure is greater than 100. Patient has a qSOFA score of 0- Negative Sepsis Screen. Acuity level changed due to. Suicide/Homicide risk assessment- the patient denies having any suicidal and/or homicidal ideations and does not present with any other emotional, behavioral or mental health complaints. Status: Patient is not a social service manager or dependent. Transition of care: patient was not received from another setting of care. 12:16 Acuity: JUAN FRANCISCO Level 3 srm 12:16 Method Of Arrival: Walkin/Carried/Asstd srm Triage Assessment: 12:19 General: Appears in no apparent distress, Behavior is appropriate for age, cooperative. srm Pain: Pain currently is 10 out of 10 on a pain scale. HIV screening NA for this visit Offered previously. Musculoskeletal: Reports left flank pain. 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 none - PMHx: Kidney stones; - PSHx: bilateral foot surgery; Hernia repair; ureteroscopy; Varicose Vein Repair; - Social history: Smoking status: Patient states was never smoker of tobacco. No barriers to communication noted, The patient speaks fluent German, Speaks appropriately for age. - Family history: Not pertinent. - : The pt / caregiver states he / she is not on anticoagulants. Home medication list is obtained from the patient. - Exposure Risk Screening:: None identified. Screenin:30 Screening information is obtained from the patient. Fall risk: No risks identified. jmk Assistance ADL's: requires no assistance with activities of daily living. Abuse/DV Screen: The patient / caregiver reports he/she is:. Nutritional screening: No deficits noted. Advance Directives: Currently, there is no health care proxy. There is no active DNR order. There is no living will. There is no Power of Fire Eater. Advance directive information has not previously been placed in an [facility] medical record. home support is adequate. Assessment: 13:30 General: Appears in no apparent distress, skin warm and dry, color satisfactory. moist jmk pink oral mucosa. abd soft and non distended with bowel sounds present x 4. Indicates left flank pain. GI: Abdomen is flat, non- distended Bowel sounds present X 4 quads. 14:16 Adult Sepsis Screening: The patient does not have new or worsening altered mentation. kc3 Patient's respiratory rate is less than 22. Systolic blood pressure is greater than 100. Patient has a qSOFA score of 0- Negative Sepsis Screen. 15:07 General: Appears states pain has decreased to 5/10. jmk 16:29 General: Appears states pain is still 5/10, but presently with very casual jf3 presentation. IV patent to left AC space. to OR. Vital Signs: 12:05 BP 175 / 107; Pulse 73; Resp 18 S; Temp 97.1(O); Pulse Ox 100% on R/A; Weight 61.23 kg dd6 (R); Height 5 ft. 3 in. (160.02 cm) (R); 12:38 BP 156 / 96 RA Sitting (man/lg); jb5 15:05 BP 132 / 82; Pulse 73; Resp 18; Temp 98.4; Pulse Ox 98% on R/A; Pain 5/10; nb2 16:28 BP 146 / 86; Pulse 86; Resp 16; Temp 97.4(O); Pulse Ox 100% ; jf3 12:05 Body Mass Index 23.91 (61.23 kg, 160.02 cm) dd6 Vitals: 12:05 Log In Time: July 23, 2016 at 12:03. dd6 ED Course: 12:04 Patient visited by Martinez Muñoz PCA. dd6 12:04 Patient moved to Waiting dd6 12:05 NO PRIMARY PHYSICIAN, . is Private Physician. dd6 12:05 Patient moved to Pre RCE dd6 12:18 Triage Initiated srm 12:33 Patient moved to Triage 1 dy 12:35 Patient visited by Lisseth Castillo PCA. jb5 12:38 Patient visited by Lisseth Castillo PCA. jb5 13:02 [facility] ar2 13:02 Michaela Robles MD is Attending Physician. ar2 13:02 Patient visited by Oscar Arnett PA-C. ar2 13:12 Patient moved to I7 dy 13:13 [facility] Payment Agreement was scanned into [employer] and attached to record. lg 13:29 MED Profile Sent. jmk 13:29 CBC with Diff Sent. jmk 13:30 The patient / caregiver is instructed regarding the plan of care and ED course. jmk 13:30 Inserted saline lock: 20 gauge in left antecubital area. jmk 13:32 Patient visited by Arturo Quinn RN. jmk 14:10 Urine Culture Sent. nb2 14:10 Urinalysis Sent. nb2 14:38 CT ABD & PELVIS: No Contrast Returned. EDMS 14:41 Patient visited by Giuliana Milligan. nb2 15:05 Patient visited by Giuliana Milligan. nb2 15:34 Danial Adames is Hospitalizing Provider. ar2 16:38 Admission Orders was scanned into [employer] and attached to record. lbd 07/24 09:25 T-Sheet-- Draft Copy was scanned into [employer] and attached to record. gb Administered Medications: 07/23 13:29 Drug: ketorolac 30 mg [ketorolac 30 mg/mL (1 mL) injection solution (1 mL)] Route: IVP; justo Site: left antecubital; 13:29 Drug: Ondansetron 4 mg Route: IVP; Site: left antecubital; edithk 13:33 Drug: NS 0.9% 1000 ml Route: IV; Rate: bolus; Site: left antecubital; justo 14:43 Drug: morphine 4 mg Route: IVP; Site: left antecubital; edithk 16:44 Drug: levofloxacin 500 mg Route: IVPB; Infused Over: 60 mins; Site: left antecubital; justo Intake: 16:28 IV: 1000.00ml (NS); Total: 1000.00ml. jf3 Order Results: Lab Order: Urinalysis; SPEC'M 07/23/16 14:06 Test: APPEARANCE, URINE; Value: CLEAR; Range: CLEAR; Status: F Test: COLOR, URINE; Value: YELLOW; Range: YELLOW; Status: F Test: PH,URINE; Value: 5.0; Range: 5.0-9.0; Units: UNITS; Status: F Test: SPECIFIC GRAVITY URINE AUTO; Value: 1.020; Range: 1.002-1.035; Status: F Test: PROTEIN, URINE AUTO; Value: 1+; Range: NEGATIVE; Abnormal: Above high normal; Units: mg/dL; Status: F Test: GLUCOSE, URINE (UA) AUTO; Value: NEGATIVE; Range: NEGATIVE; Units: mg/dL; Status: F Test: KETONE, URINE AUTO; Value: TRACE; Range: NEGATIVE; Abnormal: Above high normal; Units: mg/dL; Status: F Test: UROBILINOGEN, URINE AUTO; Value: 0.2; Range: 0.0-2.0; Units: mg/dL; Status: F Test: BILIRUBIN, URINE AUTO; Value: NEGATIVE; Range: NEGATIVE; Status: F Test: NITRITE, URINE AUTO; Value: NEGATIVE; Range: NEGATIVE; Status: F Test: LEUKOCYTE ESTERASE, URINE AUTO; Value: NEGATIVE; Range: NEGATIVE; Status: F Test: BLOOD, URINE BLOOD; Value: 2+; Range: NEGATIVE; Abnormal: Above high normal; Status: F Test: WBC, URINE AUTO; Value: 3; Range: 0-3; Units: /HPF; Status: F Test: RBC, URINE AUTO; Value: 61; Range: 0-3; Abnormal: Above high normal; Units: /HPF; Status: F Test: BACTERIA, URINE AUTO; Value: NEGATIVE; Range: NEGATIVE; Status: F Test: SQUAMOUS EPITHELIAL CELL UR AU; Value: 0; Range: 0-6; Units: /HPF; Status: F Test: MUCUS, URINE; Value: SMALL; Range: NEGATIVE; Status: F Test: HYALINE CAST, URINE AUTO; Value: 0; Range: 0-1; Units: /LPF; Status: F Test: CALCIUM OXALATE CRYSTALS; Value: SMALL; Range: NONE; Status: F Lab Order: CBC with Diff; SPEC'M 07/23/16 13:27 Test: WHITE BLOOD COUNT; Value: 10.2; Range: 4.0-10.0; Abnormal: Above high normal; Units: K/mm3; Status: F Test: RED BLOOD COUNT; Value: 4.68; Range: 4.00-5.40; Units: M/mm3; Status: F Test: HEMOGLOBIN; Value: 15.2; Range: 12.0-16.0; Units: g/dl; Status: F Test: HEMATOCRIT; Value: 42.6; Range: 36.0-47.0; Units: %; Status: F Test: MEAN CORPUSCULAR VOLUME; Value: 91.1; Range: 80.0-96.0; Units: fl; Status: F Test: MEAN CORPUSCULAR HEMOGLOBIN; Value: 32.6; Range: 27.0-33.0; Units: pg; Status: F Test: MEAN CORPUSCULAR HGB CONC; Value: 35.8; Range: 32.0-36.5; Units: g/dl; Status: F Test: RED CELL DISTRIBUTION WIDTH; Value: 12.0; Range: 11.5-14.5; Units: %; Status: F Test: PLATELET COUNT, AUTOMATED; Value: 228; Range: 150-450; Units: k/mm3; Status: F Test: NEUTROPHILS %; Value: 77.3; Range: 36.0-66.0; Abnormal: Above high normal; Units: %; Status: F Test: LYMPH %; Value: 14.8; Range: 24.0-44.0; Abnormal: Below low normal; Units: %; Status: F Test: MONO %; Value: 4.2; Range: 0.0-5.0; Units: %; Status: F Test: EOS %; Value: 0.6; Range: 0.0-3.0; Units: %; Status: F Test: BASO %; Value: 0.5; Range: 0.0-1.0; Units: %; Status: F Test: LARGE UNSTAINED CELL %; Value: 2.7; Range: 0.0-4.0; Units: %; Status: F Test: NEUTROPHILS #; Value: 7.9; Range: 1.8-7.7; Abnormal: Above high normal; Units: K/mm3; Status: F Test: LYMPH #; Value: 1.5; Range: 1.5-4.5; Units: K/mm3; Status: F Test: MONO #; Value: 0.4; Range: 0.0-0.8; Units: K/mm3; Status: F Test: EOS #; Value: 0.1; Range: 0.0-0.50; Units: K/mm3; Status: F Test: BASO #; Value: 0.0; Range: 0.0-0.2; Units: K/mm3; Status: F Test: LARGE UNSTAINED CELL #; Value: 0.3; Range: 0.0-0.4; Units: K/mm3; Status: F Lab Order: MED Profile; SPEC'M 07/23/16 13:27 Test: GLUCOSE, FASTING; Value: 101; Range: 70-105; Units: MG/DL; Status: F Test: BLOOD UREA NITROGEN; Value: 21; Range: 7-18; Abnormal: Above high normal; Units: MG/DL; Status: F Test: CREATININE FOR GFR; Value: 0.89; Range: 0.55-1.02; Units: MG/DL; Status: F Test: GLOMERULAR FILTRATION RATE; Value: > 60.0; Range: >58; Status: F Test: SODIUM LEVEL; Value: 140; Range: 136-145; Units: MEQ/L; Status: F Test: POTASSIUM SERUM; Value: 3.3; Range: 3.5-5.1; Abnormal: Below low normal; Units: MEQ/L; Status: F Test: CHLORIDE LEVEL; Value: 103; Range: 98-107; Units: MEQ/L; Status: F Test: CARBON DIOXIDE LEVEL; Value: 28; Range: 21-32; Units: MEQ/L; Status: F Test: ANION GAP; Value: 9; Range: 8-16; Units: MEQ/L; Status: F Test: CALCIUM LEVEL; Value: 8.9; Range: 8.5-10.1; Units: MG/DL; Status: F Test Note: ; Units are mL/min/1.73 m2 Chronic Kidney Disease Staging per NKF: Stage I & II GFR >=60 Normal to Mildly Decreased Stage III GFR 30-59 Moderately Decreased Stage IV GFR 15-29 Severely Decreased Stage V GFR <15 Very Little GFR Left ESRD GFR <15 on DIRECTOR MEDICAID Radiology Order: CT ABD & PELVIS: No Contrast Test: CT ABD & PELVIS: No Contrast REASON FOR EXAMINATION: left flank pain, renal colic; CT of the abdomen and pelvis without contrast, 07/23/2016; ; Indication: left flank pain, renal colic; ; Comparison: CT abdomen pelvis 07/27/2013; ; Findings: Lung bases are clear bilaterally.; ; Liver, spleen, pancreas are normal. Gallbladder without stones or wall; thickening. There is no biliary dilatation. Adrenal glands are normal. There; is moderate left hydronephrosis and hydroureter secondary to a 9 mm obstructing; calculus the left lower pelvis, above the ureteral vesicle junction.; Additionally there are multiple additional lower pelvic calculi, left greater; than right which are likely phleboliths although additional small obstructing; left ureteral calculi just above the left ureteral vesicle junction not excluded.; There is a left perinephric stranding which represents interval change. Mild; right renal pelviectasis is noted. However there are no obstructing right; ureteral calculi. 3 mm calculus in the right upper pelvis on image 92 series 201; likely represents an appendicolith adjacent to right ureter and is stable. There; is a small hiatal hernia of 3 cm diameter. Stomach and small bowel are within; normal limits. The terminal ileum and the appendix are without inflammation.; ; Abdominal aorta is of normal course and caliber; ; Bladder is partially contracted. The uterus is within normal limits. There are; no adnexal masses.; ; There has been previous ventral hernia repair with a small mesh. There is no; free air or ascites. Sclerosis is identified within the right ilium, abutting; right SI joint consistent with nonspecific assymetric sacro ileitis .; ; Impression; 1. Edematous changes left kidney and perinephric stranding. Moderate to large; left hydronephrosis and hydroureter secondary to a 9 mm obstructing calculus in; the left lower pelvis above ureterovesical junction. Additionally there are; smaller left lower pelvic calculi ,likely phleboliths, although a small distal; ureteral calculus cannot be completely excluded.; ; 2 .Mild right renal pelviectasis without obstructing right ureteral calculus.; 3. Multiple appendicoliths are seen within the appendiceal lumen which lies; adjacent to the right ureter .; ; ; ; ; Signed by; Leila Leon MD 07/23/2016 02:21 P; Outcome: 15:35 Decision to Hospitalize by Provider. ar2 16:47 Patient left the ED. justo Signatures: Dispatcher [employer] EDMS Nu Huber, Slip Cover Estimator Unit lbd Arturo QuinnRN RN Shadia Nichole, RN RN [facility] Huma Phan, Reg Reg gb Alon Huffman, Reg Reg lg Andriy Sagastume, RN RN Lisseth Parr, TOBACCO SHAKER TOBACCO SHAKER jb5 Oscar Arnett, PA-C PA-C ar2 Martinez Muñoz, TOBACCO SHAKER TOBACCO SHAKER dd6 Laila Gusman,RN RN kc3 Cristopher Osborne,[place] RN jf3 Giuliana Milligan2 Chart Complete BUCK
--- NOTE | 2016-07-25 17:47 | EDDOCDS ---
Physician Documentation [facility] Name: Katya Mendoza Age: 51 yrs Sex: Female : 1965 Arrival Date: 07/23/2016 Time: 12:03 Bed I7 / 29 Private MD: NO PRIMARY PHYSICIAN, . Disposition: 07/23/16 15:35 Hospitalization ordered by Danial Adames for Inpatient Admission. Preliminary diagnosis is Hydronephrosis with renal and ureteral calculous obstruction - left 9mm UVJ obstructing stone. - Bed requested for Admit. - Status is Inpatient Admission. jmk - Condition is Stable. - Problem is new. - Symptoms are unchanged. Historical: - Allergies: Codeine Sulfate (Vomit); - Home Meds: 1. none - PMHx: Kidney stones; - PSHx: bilateral foot surgery; Hernia repair; ureteroscopy; Varicose Vein Repair; - Social history: Smoking status: Patient states was never smoker of tobacco. No barriers to communication noted, The patient speaks fluent Yoruba, Speaks appropriately for age. - Family history: Not pertinent. - : The pt / caregiver states he / she is not on anticoagulants. Home medication list is obtained from the patient. - Exposure Risk Screening:: None identified. 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 3 in. (160.02 cm) (R); 12:38 BP 156 / 96 RA Sitting (man/lg); jb5 15:05 BP 132 / 82; Pulse 73; Resp 18; Temp 98.4; Pulse Ox 98% on R/A; Pain 5/10; nb2 16:28 BP 146 / 86; Pulse 86; Resp 16; Temp 97.4(O); Pulse Ox 100% ; jf3 12:05 Body Mass Index 23.91 (61.23 kg, 160.02 cm) dd6 MDM: 12:36 Recheck B/P ordered. dt4 12:37 Urinalysis Ordered. EDMS 12:37 Urine Culture Ordered. EDMS 13:09 IV Saline Lock ordered. ar2 13:09 NS 0.9% 1000 ml IV at bolus once ordered. ar2 13:09 ketorolac 30 mg IVP once ordered. ar2 13:09 Ondansetron 4 mg IVP once ordered. ar2 13:10 CT ABD & PELVIS: No Contrast Ordered. EDMS 13:10 CBC with Diff Ordered. EDMS 13:10 MED Profile Ordered. EDMS 13:12 Financial registration complete. lg 13:13 [facility] [place] [facility] [place] Agreement was scanned into anfix and attached to record. lg 14:30 CBC with Diff Reviewed. ar2 14:30 MED Profile Reviewed. ar2 14:32 morphine 4 mg IVP once ordered. ar2 14:43 Urinalysis Reviewed. ar2 14:43 CT ABD & PELVIS: No Contrast Reviewed. ar2 15:37 BED REQUEST+ADM ordered. EDMS 16:28 NPO FOR TEST/PROCEDURE ordered. EDMS 16:38 Admission Orders was scanned into anfix and attached to record. lbd 16:44 levofloxacin 500 mg IVPB once over 60 mins ordered. justo 07/24 09:25 T-Sheet-- Draft Copy was scanned into anfix and attached to record. gb Administered Medications: 07/23 13:29 Drug: ketorolac 30 mg [ketorolac 30 mg/mL (1 mL) injection solution (1 mL)] Route: IVP; justo Site: left antecubital; 13:29 Drug: Ondansetron 4 mg Route: IVP; Site: left antecubital; k 13:33 Drug: NS 0.9% 1000 ml Route: IV; Rate: bolus; Site: left antecubital; jmk 14:43 Drug: morphine 4 mg Route: IVP; Site: left antecubital; jmk 16:44 Drug: levofloxacin 500 mg Route: IVPB; Infused Over: 60 mins; Site: left antecubital; mario Signatures: Dispatcher MedHost EDMS Nu Huber, Neon Tube Pumper Unit lbd Arturo Quinn RN RN jmk Michelson, Staci, RN RN [facility] Emilie, Huma, Reg Reg gb Alon Huffman, Reg Reg lg Oscar Arnett PA-C PA-C ar2 Tschudi, Clare, PA-C PA-C dt4 The chart was reviewed and I authenticate all verbal orders and agree with the evaluation and treatment provided.Attachments: 13:13 [facility] Payment Agreement lg 16:38 Admission Orders lbd 07/24 09:25 T-Sheet-- Draft Copy gb Chart Complete MTDD
--- NOTE | 2016-07-25 17:47 | EDDOCDS ---
Physician Documentation [facility] Name: Katya Mendoza Age: 51 yrs Sex: Female : 1965 Arrival Date: 07/23/2016 Time: 12:03 Bed I7 / 29 Private MD: NO PRIMARY PHYSICIAN, . Disposition: 07/23/16 15:35 Hospitalization ordered by Danial Adames for Inpatient Admission. Preliminary diagnosis is Hydronephrosis with renal and ureteral calculous obstruction - left 9mm UVJ obstructing stone. - Bed requested for Admit. - Status is Inpatient Admission. jmk - Condition is Stable. - Problem is new. - Symptoms are unchanged. Historical: - Allergies: Codeine Sulfate (Vomit); - Home Meds: 1. none - PMHx: Kidney stones; - PSHx: bilateral foot surgery; Hernia repair; ureteroscopy; Varicose Vein Repair; - Social history: Smoking status: Patient states was never smoker of tobacco. No barriers to communication noted, The patient speaks fluent Yoruba, Speaks appropriately for age. - Family history: Not pertinent. - : The pt / caregiver states he / she is not on anticoagulants. Home medication list is obtained from the patient. - Exposure Risk Screening:: None identified. 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 3 in. (160.02 cm) (R); 12:38 BP 156 / 96 RA Sitting (man/lg); jb5 15:05 BP 132 / 82; Pulse 73; Resp 18; Temp 98.4; Pulse Ox 98% on R/A; Pain 5/10; nb2 16:28 BP 146 / 86; Pulse 86; Resp 16; Temp 97.4(O); Pulse Ox 100% ; jf3 12:05 Body Mass Index 23.91 (61.23 kg, 160.02 cm) dd6 MDM: 12:36 Recheck B/P ordered. dt4 12:37 Urinalysis Ordered. EDMS 12:37 Urine Culture Ordered. EDMS 13:09 IV Saline Lock ordered. ar2 13:09 NS 0.9% 1000 ml IV at bolus once ordered. ar2 13:09 ketorolac 30 mg IVP once ordered. ar2 13:09 Ondansetron 4 mg IVP once ordered. ar2 13:10 CT ABD & PELVIS: No Contrast Ordered. EDMS 13:10 CBC with Diff Ordered. EDMS 13:10 MED Profile Ordered. EDMS 13:12 Financial registration complete. lg 13:13 [facility] [place] Agreement was scanned into KO-SU and attached to record. lg 14:30 CBC with Diff Reviewed. ar2 14:30 MED Profile Reviewed. ar2 14:32 morphine 4 mg IVP once ordered. ar2 14:43 Urinalysis Reviewed. ar2 14:43 CT ABD & PELVIS: No Contrast Reviewed. ar2 15:37 BED REQUEST+ADM ordered. EDMS 16:28 NPO FOR TEST/PROCEDURE ordered. EDMS 16:38 Admission Orders was scanned into KO-SU and attached to record. lbd 16:44 levofloxacin 500 mg IVPB once over 60 mins ordered. justo 07/24 09:25 T-Sheet-- Draft Copy was scanned into KO-SU and attached to record. gb Administered Medications: 07/23 13:29 Drug: ketorolac 30 mg [ketorolac 30 mg/mL (1 mL) injection solution (1 mL)] Route: IVP; justo Site: left antecubital; 13:29 Drug: Ondansetron 4 mg Route: IVP; Site: left antecubital; k 13:33 Drug: NS 0.9% 1000 ml Route: IV; Rate: bolus; Site: left antecubital; jmk 14:43 Drug: morphine 4 mg Route: IVP; Site: left antecubital; jmk 16:44 Drug: levofloxacin 500 mg Route: IVPB; Infused Over: 60 mins; Site: left antecubital; mario Signatures: Dispatcher MedHost EDMS Nu Huber, Manager Outreach Unit lbd Arturo Quinn RN RN jmk Michelson, Staci, RN RN [facility] Emilie, Huma, Reg Reg gb Alon Huffman, Reg Reg lg Oscar Arnett PA-C PA-C ar2 Tschudi, Clare, PA-C PA-C dt4 The chart was reviewed and I authenticate all verbal orders and agree with the evaluation and treatment provided.Attachments: 13:13 [facility] Payment Agreement lg 16:38 Admission Orders lbd 07/24 09:25 T-Sheet-- Draft Copy gb Chart Complete MTDD
--- NOTE | 2016-07-26 18:59 | RO ---
DATE OF PROCEDURE: 07/23/2016 PREOPERATIVE DIAGNOSES: 5 mm distal left ureteral stone with intractable pain, hydroureter, and hydronephrosis. POSTOPERATIVE DIAGNOSES: 5 mm distal left ureteral stone with intractable pain, hydroureter, and hydronephrosis. PROCEDURE: Cystoscopy, left retrograde pyelography, left ureteroscopy, laser ablation of 9 mm distal left ureteral stone, stone basket manipulation of fragments, and left ureteral stent placement. SURGEON: Dr. Nichole Montalvo ANESTHESIA: General endotracheal anesthesia. DESCRIPTION OF OPERATIVE PROCEDURE: Proper patient was identified. Informed consent was obtained. The risks and benefits were explained. The patient was then taken to the operative suite, laid in supine position. General endotracheal anesthesia was administered. Once anesthesia was obtained, she was prepped and draped in the usual sterile fashion in the dorsal lithotomy position. We initiated the procedure by advancing a #22-Bengali cystoscope with obturator into the bladder, draining the bladder of all urine. We then inspected the bladder with a 30-degree lens. We were able to identify the left ureteral orifice and cannulate with a Pollack catheter and performed a gentle retrograde pyelogram. We could easily see the filling defect in the ureter on the key attendant film but confirmed it with contrast effluxing up to the level of the stone and then past the stone. We then passed a wire past the stone, up into the renal pelvis. We then exchanged for the rigid ureteroscope and advanced the rigid uteroscope up to the level of the stone. It was too big to take out intact, so we used a 200 laser fiber and fragmented it into manageable pieces. We intermittently exchanged for the ZeroTip Nitinol basket and extracted the removable fragments and then would fragment the stone some more and then remove the fragments. Once we had the ureter clear of all ureteral fragments, we then exchanged for the cystoscope and passed a 5 multi-length double J stent over the wire. We confirmed its placement fluoroscopically in the kidney, under direct vision in the bladder. At this point, we drained the bladder and terminated the procedure. Patient was awakened, to the postoperative anesthesia care in stable condition. DISPOSITION: She will be discharged home from the recovery room and will followup with local urologist for stent removal in 1 week and for definitive treatment of some other nonobstructing stones as well. BUCK
== END ==
LOC: M ED 12:03 → M SDC 16:28
PROVIDERS: ATTEND Urology
DX: N13.2 Hydronephrosis with renal and ureteral calculous obstruction (principal); N13.4 Hydroureter; Z88.5 Allergy status to narcotic agent
CPT/HCPCS: 52352; 52356; 74176; 74420; 80048; 81001; 82360; 85025; 87086; 88300; 96374; 96375; 99284; C2617; J1885; J1956; J2250; J2405; J2765; J3010; Q9961

== ENCOUNTER → 2016-07-29 | Outpatient (CLI) | payer OTHER ==
[~2016-07-29] MED LIST changes: -CONRAY-60 60% 50ML VIAL (Q9961) As Ordered ONE; -CONRAY-60 60% 50ML VIAL (Q9961) XX ONE; -KETOROLAC 30 MG/ML VIAL (J1885) As Ordered ONE; -LIDOCAINE 2% INJ 100 MG/5 ML SDV (FOR ANES.) As Ordered ONE; -LR 1,000 ML IV SCH; -LevoFLOXacin 500 MG in APPROPRIATE DILUENT 1 EA IV ONE; -LevoFLOXacin(LEVAQUIN)500 MG/100 ML BAG (J1956) As Ordered ONE; -METOCLOPRAMIDE INJ 10MG/2ML VIAL (J2765) As Ordered ONE; -MIDAZOLAM INJ 2 MG/2 ML VIAL (J2250) As Ordered ONE; -MORPHINE 4 MG/ML 1ML SYRINGE As Ordered ONE; -ONDANSETRON 4MG/2ML VIAL (J2405) As Ordered ONE; -ONDANSETRON 4MG/2ML VIAL (J2405) IV PRN; -PERCOCET 5MG/325MG TAB As Ordered ONE; -PERCOCET 5MG/325MG TAB PO PRN; -PROPOFOL 200 MG/20 ML VIAL As Ordered ONE; -fentaNYL 100 MCG/2 ML INJECTION (J3010) As Ordered ONE; -fentaNYL 100 MCG/2 ML INJECTION (J3010) IV PRN
--- NOTE | 2016-07-29 16:23 | REPMRS ---
Patient History The patient states she had a clinical breast exam in 2016.Patient is postmenopausal. Family history of unknown cancer in father at age 77. Took hormonal contraceptives for 10 years. Digital Mammo Screening Bilat: July 29, 2016 - Exam #: [id number] Bilateral CC and MLO view(s) were taken. Technologist: Deirdre Otero, Technologist Prior study comparison: July 09, 2015, digital bilateral screening mammo, performed at [facility]. July 08, 2014, bilateral bilat screen digital mammo, performed at [facility] ([facility]). July 05, 2013, bilateral bilat screen digital mammo, performed at [facility] ([facility]). FINDINGS: There are scattered fibroglandular densities. There has been no change in the appearance of the mammogram from the prior studies. There is a mild amount of scattered fibroglandular density which is fairly symmetric. There is no interval development of dominant mass, architectural distortion, or clustered microcalcification suggestive of malignancy. ASSESSMENT: BI-RADS/ACR category 1 mammogram. Negative. Recommendation Routine screening mammogram in 1 year (for women over age 40). This mammogram was interpreted with the aid of an FDA-approved computer-aided dectection system. Electronically Signed By: Romel Dubon MD 07/29/16 [id number]
== END ==
LOC: M RAD 15:10
PROVIDERS: ATTEND Obstetrics & Gynecology
DX: Z12.39 Encounter for other screening for malignant neoplasm of breast (principal)

== ENCOUNTER → 2016-08-03 | Outpatient (CLI) | payer OTHER ==
[2016-08-03 18:49] LABS: ANION GAP 9 MEQ/L (8-16); BLOOD UREA NITROGEN 16 MG/DL (7-18); CALCIUM LEVEL 9.2 MG/DL (8.5-10.1); CARBON DIOXIDE LEVEL 30 MEQ/L (21-32); CHLORIDE LEVEL 105 MEQ/L (98-107); CREATININE FOR GFR 0.67 MG/DL (0.55-1.02); GLOMERULAR FILTRATION RATE > 60.0 (>58); GLUCOSE, FASTING 72 MG/DL (70-105); MEAN CORPUSCULAR HEMOGLOBIN 31.8 pg (27.0-33.0); MEAN CORPUSCULAR HGB CONC 35.1 g/dl (32.0-36.5); MEAN CORPUSCULAR VOLUME 90.4 fl (80.0-96.0); POTASSIUM SERUM 4.3 MEQ/L (3.5-5.1); SODIUM LEVEL 144 MEQ/L (136-145); WHITE BLOOD COUNT 9.1 K/mm3 (4.0-10.0)
== END ==
LOC: M SMT 14:53
PROVIDERS: ATTEND Urology
DX: N20.0 Calculus of kidney (principal)

== ENCOUNTER → 2016-08-06 | Day surgery (SDC) | payer OTHER ==
[~2016-08-06] VITALS: Ht 160 cm; Wt 61.2 kg
[~2016-08-06] MED LIST changes: +CONRAY-60 60% 50ML VIAL (Q9961) As Ordered ONE; +CONRAY-60 60% 50ML VIAL (Q9961) XX ONE; +DESFLURANE 240 ML INHALANT As Ordered ONE; +LIDOCAINE 2% INJ 100 MG/5 ML SDV (FOR ANES.) As Ordered ONE; +LR 1,000 ML IV SCH; +METOCLOPRAMIDE INJ 10MG/2ML VIAL (J2765) As Ordered ONE; +MIDAZOLAM INJ 2 MG/2 ML VIAL (J2250) As Ordered ONE; +ONDANSETRON 4MG/2ML VIAL (J2405) As Ordered ONE; +PROPOFOL 200 MG/20 ML VIAL As Ordered ONE; +ePHEDrine SULFATE 25 MG/5 ML(5MG/ML) SYRINGE As Ordered ONE; +fentaNYL 100 MCG/2 ML INJECTION (J3010) As Ordered ONE
--- NOTE | 2016-08-06 15:57 | REP ---
C-ARM VIEWS DURING RETROGRADE PYELOGRAM: Four C-ARM views are performed. A wire is passed into the left ureter. Contrast is injected through a catheter partially opacifying the left pelvicaliceal system. A left ureteral stent is placed. The proximal end if coiled in the renal left renal pelvis. The distal end is coiled in the region of the urinary bladder. 22 seconds of fluoroscopic time was utilized. Signed by Christopher Dallas MD 08/06/2016 04:29 P
[2016-08-06 18:00] VITALS: BP 138/85
--- NOTE | 2016-08-06 21:29 | RO ---
DATE OF PROCEDURE: 08/06/2016 PREPROCEDURE DIAGNOSIS: Left kidney stones. POSTPROCEDURE DIAGNOSIS: Left kidney stones. PROCEDURE: Cystoscopy, removal of left ureteral stent, left ureteroscopy with laser lithotripsy and basket extraction of stones, left retrograde pyelogram with intraoperative interpretation of images, left ureteral stent placement. SURGEON: Dr. Danial Adames SOUND EDITOR: None. ANESTHESIA: General. OPERATIVE INDICATIONS: This is a 51-year-old female who underwent a cystoscopy, left ureteroscopy and laser lithotripsy a few weeks ago for an obstructing left ureteral stone. A stent was placed at that time. Of note, she had at least two large stones inside her left kidney as well. She was brought to the operating room today for removal of the stones. DESCRIPTION OF PROCEDURE: The patient was brought to the operating room and general anesthesia was induced. Prophylactic antibiotics were infused. She was then placed in the dorsal lithotomy position and prepped and draped in the usual sterile fashion. A rigid cystoscope was then inserted into the urethral meatus and advanced into the bladder. Once within the bladder, the previously placed stent was seen. The stent was then grasped and withdrawn until the distal end was seen protruding from the urethral meatus. A wire was then advanced up the stent up into the left collecting system. The stent was then removed leaving the wire in place. Next, a parallel ureteral access sheath was advanced over the wire up into the left collecting system. The stylet was then removed and the wire was secured to the drape to serve as a safety wire. A flexible ureteroscope was then advanced up the left collecting system through the access sheath. The left kidney was then thoroughly examined. Of note, only two stones were seen. There was a large stone in the left upper pole calyx as well as a large one in the lower pole calyx. I utilized a 200 micron laser fiber to fragment the lower pole stone into smaller pieces. Of note, it was very hard to then retrieve these pieces, but I removed as many as I could using a stone basket. Any stones that were not removed were fragmented into tiny pieces that should be small enough to pass. I then addressed the upper pole stone. The stone was then fragmented into about three or four pieces and then all of the fragments were removed using a stone basket. Next, I examined the kidney again and no large stone fragments were seen. A retrograde pyelogram was performed and was notable for mild left hydronephrosis. At this point, the ureteral access sheath was removed and no additional stones were seen behind the access sheath. The ureteroscope was removed as well. I then utilized the previously placed wire to advance a 6- Sami x 22-32 cm JJ ureteral stent up into the left collecting system. The wire was then removed and there were adequate coils of the stent in the left renal pelvis and in the bladder. The bladder was then emptied of all fluids and this marked the conclusion of the procedure. The patient was then taken out of the dorsal lithotomy position, awakened from anesthesia and transported to the recovery room in stable condition. ESTIMATED BLOOD LOSS: 0 mL. COMPLICATIONS: None. SPECIMENS: Kidney stone fragments. PLAN: The patient will followup in the clinic in a week or two for stent removal , and we will get a KUB prior to removing her stent. BUCK
== END | disposition home or self-care (01) ==
LOC: M SDC 10:02
PROVIDERS: ATTEND Urology
DX: N20.0 Calculus of kidney (principal); Z78.0 Asymptomatic menopausal state; Z88.5 Allergy status to narcotic agent
CPT/HCPCS: 52352; 52356; 74420; 82360; 88300; C2617; J0690; J2250; J2405; J2765; J3010; Q9961

== ENCOUNTER → 2016-08-17 | Outpatient (CLI) | payer OTHER ==
[~2016-08-17] MED LIST changes: -CONRAY-60 60% 50ML VIAL (Q9961) As Ordered ONE; -CONRAY-60 60% 50ML VIAL (Q9961) XX ONE; -DESFLURANE 240 ML INHALANT As Ordered ONE; -LIDOCAINE 2% INJ 100 MG/5 ML SDV (FOR ANES.) As Ordered ONE; -LR 1,000 ML IV SCH; -METOCLOPRAMIDE INJ 10MG/2ML VIAL (J2765) As Ordered ONE; -MIDAZOLAM INJ 2 MG/2 ML VIAL (J2250) As Ordered ONE; -ONDANSETRON 4MG/2ML VIAL (J2405) As Ordered ONE; -PROPOFOL 200 MG/20 ML VIAL As Ordered ONE; -ePHEDrine SULFATE 25 MG/5 ML(5MG/ML) SYRINGE As Ordered ONE; -fentaNYL 100 MCG/2 ML INJECTION (J3010) As Ordered ONE
--- NOTE | 2016-08-18 03:10 | REP ---
Clinical: Nephrolithiasis. Technique: Single supine view of the abdomen and pelvis. Findings: Left ureteral stent in seemingly satisfactory position. Left intrarenal calculi identified. Calcifications in the pelvis likely represent phleboliths and are essentially unchanged compared to 2014. However, subtle small ureteral/bladder calculi cannot be excluded. Bowel gas pattern is nonspecific. Hepatomegaly cannot be excluded. Skeletal structures intact. Impression: Left ureteral stent with left intrarenal calculi. Cannot exclude right renal, bilateral ureteral or bladder calculi. Signed by Minesh Contreras MD 08/18/2016 03:02 A
== END ==
LOC: M SMT 15:21
PROVIDERS: ATTEND Urology
DX: N20.0 Calculus of kidney (principal)

== ENCOUNTER 2016-08-18 01:30 | Emergency (ER) | payer OTHER ==
[2016-08-18] MEDS ORDERED: KETOROLAC 30 MG/ML VIAL (J1885) As Ordered ONE (02:38)
--- NOTE | 2016-08-18 03:50 | REPUSA ---
CLINICAL HISTORY: TECHNIQUE: Multiple axial and coronal CT images were obtained through the abdomen and pelvis without administration of oral or IV contrast material. COMMENTS: The liver is of uniform attenuation without mass or defect. There is no intra or extrahepatic biliary ductal dilatation. The spleen is normal. The gallbladder is within normal limits. The pancreas is of normal contour and attenuation characteristics. There is no evidence of adrenal mass. Bilateral renal stones with the largest measuring 8 mm on the left side. 3 mm obstructing calculus in the distal third of the left ureter. Moderate left hydroureteronephrosis. There is no evidence for appendicitis. There is no bowel wall thickening. No evidence for small or la rge bowel obstruction. There is no evidence of abdominal ascites or lymphadenopathy. There is no evidence of intrinsic or extrinsic bladder mass. There is no pelvic ascites or lymphadeno paras. Diffuse thickening of the bladder. Images of the lung bases show no evidence of pleural or parenchymal mass. There are no pleural effusi ons. The bony structures are free of lytic or blastic lesions. IMPRESSION: Diffuse thickening of the wall of the bladder. Obstructing stone in the distal third of the left ureter. Moderate left hydroureteronephrosis. Bilateral nephrolithiasis. Thank you for your kind referral of this patient.
[2016-08-18] MEDS ORDERED: OXYCODONE/APAP 5MG/325MG(BULK) 1 TAB TAB As Ordered ONE (04:02)
--- NOTE | 2016-08-18 04:21 | EDDOCDS ---
Nurse's Notes [facility] Name: Katya Mendoza Age: 51 yrs Sex: Female : 1965 Arrival Date: 08/18/2016 Time: 01:30 Bed 9 Private MD: Diagnosis: Calculus of ureter-left distal third, 3mm, with moderate hydronephrosis and hydroureter Presentation: 08/18 01:37 Presenting complaint: Patient states: stent removal yesterday, reports lower abdominal nn1 pain. Reports increased pressure with urination. Reports pain woke her up from sleep, reports vaginal bleeding began 30 minutes after pain. Presenting complaint: Patient states: lower abdominal pain, vaginal bleeding, and odor prior to removal of stent, states urine sample was taken yesterday. Adult Sepsis Screening: The patient does not have new or worsening altered mentation. Patient's respiratory rate is less than 22. Systolic blood pressure is greater than 100. Patient has a qSOFA score of 0- Negative Sepsis Screen. Suicide/Homicide risk assessment- the patient denies having any suicidal and/or homicidal ideations and does not present with any other emotional, behavioral or mental health complaints. Status: Patient is not a director outpatient services or dependent. Transition of care: patient was not received from another setting of care. 01:37 Acuity: JUAN FRANCISCO Level 3 nn1 01:37 Method Of Arrival: Walkin/Carried/Asstd nn1 Triage Assessment: 01:43 General: Appears in no apparent distress, Behavior is appropriate for age, cooperative. nn1 Pain: Location: right lower quadrant, left lower quadrant and pelvis Pain currently is 7 out of 10 on a pain scale. Quality of pain is described as stabbing, Pain began 2-3 days ago. HIV screening NA for this visit Offered previously. The patient is triaged at the bedside. See Assessment in Nurses Notes section of ED record. Neurological: No deficits noted. Respiratory: Airway is patent Respiratory effort is even, unlabored, Respiratory pattern is regular, symmetrical. GI: Abdomen is non- distended : Reports vaginal bleeding that is spotty Dark red Pressure with urination. 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 none - PMHx: Kidney stones; - PSHx: Varicose Vein Repair; Hernia repair; Ureteral Stent- Left; - The history from nurses notes was reviewed: but my personal history reveals: She does not have vaginal bleeding as documented . - Social history: Smoking status: Patient states was never smoker of tobacco. No barriers to communication noted, The patient speaks fluent Vietnamese, Speaks appropriately for age. - : The pt / caregiver states he / she is not on anticoagulants. Home medication list is obtained from the patient. - Hospitalizations: : No recent hospitalization is reported. - Exposure Risk Screening:: None identified. - Immunization history:: All immunizations up-to-date. - Family history: Not pertinent. - Social history:: the patient is a non-smoker, the patient does not drink alcohol. Screenin:03 Screening information is obtained from the patient. Fall risk: No risks identified. kas2 Assistance ADL's: requires no assistance with activities of daily living. Abuse/DV Screen: The patient / caregiver reports he/she is: not in a situation that causes fear, pain or injury. Nutritional screening: No deficits noted. Advance Directives: Currently, there is no health care proxy. There is no active DNR order. There is no living will. There is no Power of [place]. home support is adequate. Assessment: 02:02 General: Appears in no apparent distress, uncomfortable, well nourished, well groomed, kas2 Behavior is appropriate for age, cooperative. Pain: Location: pelvis and abdomen and left lower quadrant and right lower quadrant Pain currently is 4 out of 10 on a pain scale. Neurological: Level of Consciousness is awake, alert, Oriented to person, place, time. Cardiovascular: Capillary refill < 3 seconds Heart tones S1 S2 present Rhythm is regular. Respiratory: Airway is patent Respiratory effort is even, unlabored, Respiratory pattern is regular, symmetrical, Breath sounds are clear bilaterally. Derm: Skin is intact, Skin is dry, Skin is pink, warm & dry. Skin temperature is warm. 03:20 General: Appears in no apparent distress, comfortable, Behavior is appropriate for age, kas2 cooperative. Pain: Denies pain. Neurological: Level of Consciousness is awake, alert, Oriented to person, place, time. Respiratory: Airway is patent Respiratory effort is even, unlabored, Respiratory pattern is regular, symmetrical. Derm: Skin is intact, Skin is dry, Skin is pink, warm & dry. Skin temperature is warm. 04:10 General: Patient laying in bed with TV on. No apparent distress noted. Appears kas2 comfortable. Denies pain or discomfort at this time. Call santos within reach. Will continue to monitor.. Vital Signs: 01:42 BP 139 / 84; Pulse 78; Resp 18; Temp 98.4; Pulse Ox 98% on R/A; Weight 61.23 kg; Height nn1 5 ft. 3 in. (160.02 cm); Pain 6/10; 04:17 BP 128 / 78; Pulse 72; Resp 18; Temp 98.0(O); Pulse Ox 99% on R/A; Pain 0/10; kas2 01:42 Body Mass Index 23.91 (61.23 kg, 160.02 cm) nn1 Vitals: 01:42 Log In Time: August 18, 2016 at 01:30. nn1 ED Course: 01:32 Patient visited by Andre Do Reg. pm4 01:32 Patient moved to Waiting pm4 01:40 Triage Initiated nn1 01:46 Gail Huggins RN is Primary Nurse. nn1 01:46 Patient moved to 9 nn1 02:06 Patient visited by Gail Huggins RN. kas2 02:11 Patient visited by Gail Huggins RN. kas2 02:12 Nicolás Menjivar MD is Attending Physician. pc 02:18 Patient visited by Nicolás Menjivar MD. pc 02:50 Patient visited by Gail Huggins RN. kas2 02:50 Inserted saline lock: 22 gauge in left hand The patient tolerated the procedure well. kas2 No procedures done that require assistance. 03:00 Patient visited by Gail Huggins RN. kas2 03:20 [facility] Payment Agreement was scanned into [employer] and attached to record. hs2 03:22 Patient name changed from Katya\S\A\S\Kelly\S\ to Katya\S\Josefina\S\Kelly. EDMS 03:33 Patient visited by Gail Huggins RN. kas2 03:59 Danial Adames is Referral Physician. pc 04:03 CT ABD & PELVIS: No Contrast Returned. EDMS 04:20 Patient visited by Gail Huggins RN. kas2 04:20 The patient / caregiver is instructed regarding the plan of care and ED course. kas2 04:20 Discontinued IV bleeding controlled, pressure dressing applied, No redness/swelling at kas2 site. Administered Medications: 02:50 Drug: ketorolac 30 mg [ketorolac 30 mg/mL (1 mL) injection solution (1 mL)] Route: IVP; kas2 Site: left hand; 04:05 Drug: oxyCODONE-acetaminophen 4 pack 1 packets [oxycodone-acetaminophen 5 mg-325 mg kas2 tablet (1 tabs)] {Co-Signature: af2 (Cielo Moon RN).} Route: PO; Order Results: Radiology Order: CT ABD & PELVIS: No Contrast Test: CT ABD & PELVIS: No Contrast REASON FOR EXAMINATION: Renal colic; ; CLINICAL HISTORY:; TECHNIQUE: Multiple axial and coronal CT images were obtained through the abdomen and pelvis without; administration of oral or IV contrast material.; COMMENTS:; The liver is of uniform attenuation without mass or defect. There is no intra or extrahepatic biliary; ductal dilatation. The spleen is normal. The gallbladder is within normal limits. The pancreas is of; normal contour and attenuation characteristics. There is no evidence of adrenal mass.; Bilateral renal stones with the largest measuring 8 mm on the left side.; 3 mm obstructing calculus in the distal third of the left ureter.; Moderate left hydroureteronephrosis.; There is no evidence for appendicitis. There is no bowel wall thickening. No evidence for small or la; rge bowel obstruction. There is no evidence of abdominal ascites or lymphadenopathy.; There is no evidence of intrinsic or extrinsic bladder mass. There is no pelvic ascites or lymphadeno; paras.; Diffuse thickening of the bladder.; Images of the lung bases show no evidence of pleural or parenchymal mass. There are no pleural effusi; ons.; The bony structures are free of lytic or blastic lesions.; IMPRESSION:; Diffuse thickening of the wall of the bladder.; Obstructing stone in the distal third of the left ureter.; Moderate left hydroureteronephrosis.; Bilateral nephrolithiasis.; Thank you for your kind referral of this patient.; ; Outcome: 03:59 Discharge ordered by Provider. 04:20 Discharge Assessment: patient administered narcotics - no. The following High Risk [facility] Discharge criteria are identified: None. Discharged to home ambulatory. Condition: good Condition: stable Condition: improved. CT Study completed. Property :Personal belongings accompany Pt. 04:20 Patient left the ED. kas2 Signatures: Dispatcher [employer] EDNicolás Madrigal MD MD pc Nunez, NikkoleRN RN nn1 Jannet Garcia, Reg Reg hs2 Gail Huggins RN RN kas2 Andre Do, Reg Reg pm4 Cielo Moon RN af2 MTDD
--- NOTE | 2016-08-18 04:21 | EDDOCDS ---
Physician Documentation [facility] Name: Katya Mendoza Age: 51 yrs Sex: Female : 1965 Arrival Date: 08/18/2016 Time: 01:30 Bed 9 Private MD: Disposition: 08/18 03:57 Critical Care: Critical care not applicable. pc Disposition: 08/18/16 03:59 Discharged to Home/Self Care. Impression: Calculus of ureter - left distal third, 3mm, with moderate hydronephrosis and hydroureter. - Condition is Stable. - Discharge Instructions: Ureteral Colic. - Prescriptions for Percocet 5- 325 mg Oral Tablet - take 1 tablet by ORAL route every 6 hours As needed MDD: 4 tabs; 20 tablet. Flomax 0.4 mg Oral Capsule, Sust. Release 24 hr - take 1 capsule by ORAL route once daily 1/2 hour following the same meal each day; 30 capsule. ZOFRAN ODT 4 mg - dissolve 1 tablet by ORAL route 4 times per day As needed do not chew, do not swallow whole; 10 tablet. - Medication Reconciliation, Local Pharmacy Hours form. - Follow up: Danial Adames; When: Call to arrange an appointment; Reason: Recheck today's complaints, Continuance of care. - Problem is new. - Symptoms have improved. HPI: 02:31 This 51 yrs old Female presents to ER via Walkin/Carried/Asstd with pc complaints of Urinary Problem. 02:31 The history is obtained from the patient. She had two ureteral stent insertions and pc removal, with laser lithotripsy and basket extraction, in mid to late July. She had her stent removed yesterday. She began to have bladder pressure and passed bloody urine a few times, with pain upon voiding, soon after her appointment. After she voids, her pain resolves. She denies any flank pain but says she gets nauseated with the pain. The patient has experienced similar episodes in the past, several times. The patient has been recently seen by Dr. Adames. Historical: - Allergies: Codeine Sulfate (Vomit); - Home Meds: 1. none - PMHx: Kidney stones; - PSHx: Varicose Vein Repair; Hernia repair; Ureteral Stent- Left; - The history from nurses notes was reviewed: but my personal history reveals: She does not have vaginal bleeding as documented . - Social history: Smoking status: Patient states was never smoker of tobacco. No barriers to communication noted, The patient speaks fluent Filipino, Speaks appropriately for age. - : The pt / caregiver states he / she is not on anticoagulants. Home medication list is obtained from the patient. - Hospitalizations: : No recent hospitalization is reported. - Exposure Risk Screening:: None identified. - Immunization history:: All immunizations up-to-date. - Family history: Not pertinent. - Social history:: the patient is a non-smoker, the patient does not drink alcohol. 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 pc Exam: 02:31 General Appearance: no acute distress, alert. pc 02:31 EENT: normal eye inspection, ears, nose and throat normal, pharynx normal, mucous membranes moist 02:31 Neck: The exam reveals no acute abnormalities. ROM is normal and painless. No nuchal rigidity is noted.. 02:31 Respiratory: no respiratory distress, normal breath sounds. 02:31 CVS: regular pulse rate, regular rhythm, normal S1 and S2, no murmurs, strong peripheral pulses. 02:31 Abdomen: soft, non-tender, no organomegaly, normal bowel sounds. 02:31 Back: normal inspection. 02:31 : bladder is non-distended, non-tender. 02:31 Skin: skin color is normal, warm, dry. 02:31 Extremities: The extremities have a grossly normal appearance. 02:31 Neuro: oriented x 3, cranial nerves normal as tested, no motor deficits, no sensory deficits. 02:31 Psych: normal mood. Vital Signs: 01:42 BP 139 / 84; Pulse 78; Resp 18; Temp 98.4; Pulse Ox 98% on R/A; Weight 61.23 kg / nn1 134.99 lbs; Height 5 ft. 3 in. (160.02 cm); Pain 6/10; 04:17 BP 128 / 78; Pulse 72; Resp 18; Temp 98.0(O); Pulse Ox 99% on R/A; Pain 0/10; kas2 01:42 Body Mass Index 23.91 (61.23 kg, 160.02 cm) nn1 MDM: 02:29 IV Saline Lock ordered. pc 02:29 CT ABD & PELVIS: No Contrast Ordered. EDMS 02:31 ketorolac 30 mg IVP once ordered. pc 02:31 Differential Diagnosis: hematuria and dysuria, s/p ureteral stent removal and known pc renal stones. Plan: meds, imaging. 02:34 Financial registration complete. hs2 03:20 [facility] Payment Agreement was scanned into [employer] and attached to record. hs2 03:51 Data reviewed: old medical records, vital signs, nurses notes, all radiology studies pc and available results. Test interpretation: interpreted by Radiologist and personally reviewed, Abdomen/Pelvis CT; moderate left hydronephrosis and hydroureter due to 3mm stone in distal third of left ureter. Diffuse bladder wall thickening. Bilateral renal stones. 03:57 The patient has been re-examined and re-evaluated. The patient's symptoms have markedly pc improved after treatment. Physician consultation: Dr. Danial Adames was contacted at 03:57, regarding patient's condition, and advises the medications/treatment as provided. and agrees with the treatment provided and advises the discharge plans as outlined. Disposition: The historical points, examination findings, and any diagnostic results supporting the provided diagnosis, were discussed with the patient or legal guardian. The need for outpatient follow up with the provider listed on their discharge instructions was discussed. They were encouraged to return to [facility], or the nearest ED, if symptoms worsen/persist, or for any other questions/concerns. 03:58 oxyCODONE-acetaminophen 4 pack 5 mg-325 mg 1 packets PO once; Dispense with pt, take as pc per instruction on package ordered. Administered Medications: 02:50 Drug: ketorolac 30 mg [ketorolac 30 mg/mL (1 mL) injection solution (1 mL)] Route: IVP; kas2 Site: left hand; 04:05 Drug: oxyCODONE-acetaminophen 4 pack 1 packets [oxycodone-acetaminophen 5 mg-325 mg kas2 tablet (1 tabs)] {Co-Signature: af2 (Cielo Moon RN).} Route: PO; Signatures: Dispatcher [employer] EDMS Nicolás Menjivar MD MD pc Nunez, Nikkole, RN RN nn1 Jannet Garcia, Reg Reg hs2 Gail Huggins RN RN kas2 Cielo Moon RN af2 The chart was reviewed and I authenticate all verbal orders and agree with the evaluation and treatment provided.Attachments: 03:20 [facility] Payment Agreement hs2 MTDD
--- NOTE | 2016-08-20 05:22 | EDDOCDS ---
Physician Documentation [facility] Name: Katya Mendoza Age: 51 yrs Sex: Female : 1965 Arrival Date: 08/18/2016 Time: 01:30 Bed 9 Private MD: Disposition: 08/18 03:57 Critical Care: Critical care not applicable. pc Disposition: 08/18/16 03:59 Discharged to Home/Self Care. Impression: Calculus of ureter - left distal third, 3mm, with moderate hydronephrosis and hydroureter. - Condition is Stable. - Discharge Instructions: Ureteral Colic. - Prescriptions for Percocet 5- 325 mg Oral Tablet - take 1 tablet by ORAL route every 6 hours As needed MDD: 4 tabs; 20 tablet. Flomax 0.4 mg Oral Capsule, Sust. Release 24 hr - take 1 capsule by ORAL route once daily 1/2 hour following the same meal each day; 30 capsule. ZOFRAN ODT 4 mg - dissolve 1 tablet by ORAL route 4 times per day As needed do not chew, do not swallow whole; 10 tablet. - Medication Reconciliation, Local Pharmacy Hours form. - Follow up: Danial Adames; When: Call to arrange an appointment; Reason: Recheck today's complaints, Continuance of care. - Problem is new. - Symptoms have improved. HPI: 02:31 This 51 yrs old Female presents to ER via Walkin/Carried/Asstd with pc complaints of Urinary Problem. 02:31 The history is obtained from the patient. She had two ureteral stent insertions and pc removal, with laser lithotripsy and basket extraction, in mid to late July. She had her stent removed yesterday. She began to have bladder pressure and passed bloody urine a few times, with pain upon voiding, soon after her appointment. After she voids, her pain resolves. She denies any flank pain but says she gets nauseated with the pain. The patient has experienced similar episodes in the past, several times. The patient has been recently seen by Dr. Adames. Historical: - Allergies: Codeine Sulfate (Vomit); - Home Meds: 1. none - PMHx: Kidney stones; - PSHx: Varicose Vein Repair; Hernia repair; Ureteral Stent- Left; - The history from nurses notes was reviewed: but my personal history reveals: She does not have vaginal bleeding as documented . - Social history: Smoking status: Patient states was never smoker of tobacco. No barriers to communication noted, The patient speaks fluent Sudanese, Speaks appropriately for age. - : The pt / caregiver states he / she is not on anticoagulants. Home medication list is obtained from the patient. - Hospitalizations: : No recent hospitalization is reported. - Exposure Risk Screening:: None identified. - Immunization history:: All immunizations up-to-date. - Family history: Not pertinent. - Social history:: the patient is a non-smoker, the patient does not drink alcohol. 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 pc Exam: 02:31 General Appearance: no acute distress, alert. pc 02:31 EENT: normal eye inspection, ears, nose and throat normal, pharynx normal, mucous membranes moist 02:31 Neck: The exam reveals no acute abnormalities. ROM is normal and painless. No nuchal rigidity is noted.. 02:31 Respiratory: no respiratory distress, normal breath sounds. 02:31 CVS: regular pulse rate, regular rhythm, normal S1 and S2, no murmurs, strong peripheral pulses. 02:31 Abdomen: soft, non-tender, no organomegaly, normal bowel sounds. 02:31 Back: normal inspection. 02:31 : bladder is non-distended, non-tender. 02:31 Skin: skin color is normal, warm, dry. 02:31 Extremities: The extremities have a grossly normal appearance. 02:31 Neuro: oriented x 3, cranial nerves normal as tested, no motor deficits, no sensory deficits. 02:31 Psych: normal mood. Vital Signs: 01:42 BP 139 / 84; Pulse 78; Resp 18; Temp 98.4; Pulse Ox 98% on R/A; Weight 61.23 kg / nn1 134.99 lbs; Height 5 ft. 3 in. (160.02 cm); Pain 6/10; 04:17 BP 128 / 78; Pulse 72; Resp 18; Temp 98.0(O); Pulse Ox 99% on R/A; Pain 0/10; kas2 01:42 Body Mass Index 23.91 (61.23 kg, 160.02 cm) nn1 MDM: 02:29 IV Saline Lock ordered. pc 02:29 CT ABD & PELVIS: No Contrast Ordered. EDMS 02:31 ketorolac 30 mg IVP once ordered. pc 02:31 Differential Diagnosis: hematuria and dysuria, s/p ureteral stent removal and known pc renal stones. Plan: meds, imaging. 02:34 Financial registration complete. hs2 03:20 [facility] Payment Agreement was scanned into [employer] and attached to record. hs2 03:51 Data reviewed: old medical records, vital signs, nurses notes, all radiology studies pc and available results. Test interpretation: interpreted by Radiologist and personally reviewed, Abdomen/Pelvis CT; moderate left hydronephrosis and hydroureter due to 3mm stone in distal third of left ureter. Diffuse bladder wall thickening. Bilateral renal stones. 03:57 The patient has been re-examined and re-evaluated. The patient's symptoms have markedly pc improved after treatment. Physician consultation: Dr. Danial Adames was contacted at 03:57, regarding patient's condition, and advises the medications/treatment as provided. and agrees with the treatment provided and advises the discharge plans as outlined. Disposition: The historical points, examination findings, and any diagnostic results supporting the provided diagnosis, were discussed with the patient or legal guardian. The need for outpatient follow up with the provider listed on their discharge instructions was discussed. They were encouraged to return to [facility], or the nearest ED, if symptoms worsen/persist, or for any other questions/concerns. 03:58 oxyCODONE-acetaminophen 4 pack 5 mg-325 mg 1 packets PO once; Dispense with pt, take as pc per instruction on package ordered. 08/19 11:13 Radiology Report was scanned into [employer] and attached to record. gb Administered Medications: 08/18 02:50 Drug: ketorolac 30 mg [ketorolac 30 mg/mL (1 mL) injection solution (1 mL)] Route: IVP; kas2 Site: left hand; 04:05 Drug: oxyCODONE-acetaminophen 4 pack 1 packets [oxycodone-acetaminophen 5 mg-325 mg kas2 tablet (1 tabs)] {Co-Signature: af2 (Cielo Moon RN).} Route: PO; Signatures: Dispatcher [employer] EDNH Nicolás Menjivar MD MD pc Huma Phan, Reg Reg Manuel McneillRN RN nn1 Jannet Garcia, Reg Reg hs2 Gail Huggins RN RN kas2 Cielo Moon RN af2 The chart was reviewed and I authenticate all verbal orders and agree with the evaluation and treatment provided.Attachments: 03:20 [facility] Payment Agreement hs2 Chart Complete MTDD
--- NOTE | 2016-08-20 05:22 | EDDOCDS ---
Physician Documentation [facility] Name: Katya Mendoza Age: 51 yrs Sex: Female : 1965 Arrival Date: 08/18/2016 Time: 01:30 Bed 9 Private MD: Disposition: 08/18 03:57 Critical Care: Critical care not applicable. pc Disposition: 08/18/16 03:59 Discharged to Home/Self Care. Impression: Calculus of ureter - left distal third, 3mm, with moderate hydronephrosis and hydroureter. - Condition is Stable. - Discharge Instructions: Ureteral Colic. - Prescriptions for Percocet 5- 325 mg Oral Tablet - take 1 tablet by ORAL route every 6 hours As needed MDD: 4 tabs; 20 tablet. Flomax 0.4 mg Oral Capsule, Sust. Release 24 hr - take 1 capsule by ORAL route once daily 1/2 hour following the same meal each day; 30 capsule. ZOFRAN ODT 4 mg - dissolve 1 tablet by ORAL route 4 times per day As needed do not chew, do not swallow whole; 10 tablet. - Medication Reconciliation, Local Pharmacy Hours form. - Follow up: Danial Adames; When: Call to arrange an appointment; Reason: Recheck today's complaints, Continuance of care. - Problem is new. - Symptoms have improved. HPI: 02:31 This 51 yrs old Female presents to ER via Walkin/Carried/Asstd with pc complaints of Urinary Problem. 02:31 The history is obtained from the patient. She had two ureteral stent insertions and pc removal, with laser lithotripsy and basket extraction, in mid to late July. She had her stent removed yesterday. She began to have bladder pressure and passed bloody urine a few times, with pain upon voiding, soon after her appointment. After she voids, her pain resolves. She denies any flank pain but says she gets nauseated with the pain. The patient has experienced similar episodes in the past, several times. The patient has been recently seen by Dr. Adames. Historical: - Allergies: Codeine Sulfate (Vomit); - Home Meds: 1. none - PMHx: Kidney stones; - PSHx: Varicose Vein Repair; Hernia repair; Ureteral Stent- Left; - The history from nurses notes was reviewed: but my personal history reveals: She does not have vaginal bleeding as documented . - Social history: Smoking status: Patient states was never smoker of tobacco. No barriers to communication noted, The patient speaks fluent Moroccan, Speaks appropriately for age. - : The pt / caregiver states he / she is not on anticoagulants. Home medication list is obtained from the patient. - Hospitalizations: : No recent hospitalization is reported. - Exposure Risk Screening:: None identified. - Immunization history:: All immunizations up-to-date. - Family history: Not pertinent. - Social history:: the patient is a non-smoker, the patient does not drink alcohol. 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 pc Exam: 02:31 General Appearance: no acute distress, alert. pc 02:31 EENT: normal eye inspection, ears, nose and throat normal, pharynx normal, mucous membranes moist 02:31 Neck: The exam reveals no acute abnormalities. ROM is normal and painless. No nuchal rigidity is noted.. 02:31 Respiratory: no respiratory distress, normal breath sounds. 02:31 CVS: regular pulse rate, regular rhythm, normal S1 and S2, no murmurs, strong peripheral pulses. 02:31 Abdomen: soft, non-tender, no organomegaly, normal bowel sounds. 02:31 Back: normal inspection. 02:31 : bladder is non-distended, non-tender. 02:31 Skin: skin color is normal, warm, dry. 02:31 Extremities: The extremities have a grossly normal appearance. 02:31 Neuro: oriented x 3, cranial nerves normal as tested, no motor deficits, no sensory deficits. 02:31 Psych: normal mood. Vital Signs: 01:42 BP 139 / 84; Pulse 78; Resp 18; Temp 98.4; Pulse Ox 98% on R/A; Weight 61.23 kg / nn1 134.99 lbs; Height 5 ft. 3 in. (160.02 cm); Pain 6/10; 04:17 BP 128 / 78; Pulse 72; Resp 18; Temp 98.0(O); Pulse Ox 99% on R/A; Pain 0/10; kas2 01:42 Body Mass Index 23.91 (61.23 kg, 160.02 cm) nn1 MDM: 02:29 IV Saline Lock ordered. pc 02:29 CT ABD & PELVIS: No Contrast Ordered. EDMS 02:31 ketorolac 30 mg IVP once ordered. pc 02:31 Differential Diagnosis: hematuria and dysuria, s/p ureteral stent removal and known pc renal stones. Plan: meds, imaging. 02:34 Financial registration complete. hs2 03:20 [facility] Payment Agreement was scanned into [employer] and attached to record. hs2 03:51 Data reviewed: old medical records, vital signs, nurses notes, all radiology studies pc and available results. Test interpretation: interpreted by Radiologist and personally reviewed, Abdomen/Pelvis CT; moderate left hydronephrosis and hydroureter due to 3mm stone in distal third of left ureter. Diffuse bladder wall thickening. Bilateral renal stones. 03:57 The patient has been re-examined and re-evaluated. The patient's symptoms have markedly pc improved after treatment. Physician consultation: Dr. Danial Adames was contacted at 03:57, regarding patient's condition, and advises the medications/treatment as provided. and agrees with the treatment provided and advises the discharge plans as outlined. Disposition: The historical points, examination findings, and any diagnostic results supporting the provided diagnosis, were discussed with the patient or legal guardian. The need for outpatient follow up with the provider listed on their discharge instructions was discussed. They were encouraged to return to [facility], or the nearest ED, if symptoms worsen/persist, or for any other questions/concerns. 03:58 oxyCODONE-acetaminophen 4 pack 5 mg-325 mg 1 packets PO once; Dispense with pt, take as pc per instruction on package ordered. 08/19 11:13 Radiology Report was scanned into [employer] and attached to record. gb Administered Medications: 08/18 02:50 Drug: ketorolac 30 mg [ketorolac 30 mg/mL (1 mL) injection solution (1 mL)] Route: IVP; kas2 Site: left hand; 04:05 Drug: oxyCODONE-acetaminophen 4 pack 1 packets [oxycodone-acetaminophen 5 mg-325 mg kas2 tablet (1 tabs)] {Co-Signature: af2 (Cielo Moon RN).} Route: PO; Signatures: Dispatcher [employer] EDAL Nicolás Menjivar MD MD pc Huma Phan, Reg Reg Manuel McneillRN RN nn1 Jannet Garcia, Reg Reg hs2 Gail Huggins RN RN kas2 Cielo Moon RN af2 The chart was reviewed and I authenticate all verbal orders and agree with the evaluation and treatment provided.Attachments: 03:20 [facility] Payment Agreement hs2 Chart Complete MTDD
--- NOTE | 2016-08-20 05:23 | EDDOCDS ---
Nurse's Notes [facility] Name: Katya Mendoza Age: 51 yrs Sex: Female : 1965 Arrival Date: 08/18/2016 Time: 01:30 Bed 9 Private MD: Diagnosis: Calculus of ureter-left distal third, 3mm, with moderate hydronephrosis and hydroureter Presentation: 08/18 01:37 Presenting complaint: Patient states: stent removal yesterday, reports lower abdominal nn1 pain. Reports increased pressure with urination. Reports pain woke her up from sleep, reports vaginal bleeding began 30 minutes after pain. Presenting complaint: Patient states: lower abdominal pain, vaginal bleeding, and odor prior to removal of stent, states urine sample was taken yesterday. Adult Sepsis Screening: The patient does not have new or worsening altered mentation. Patient's respiratory rate is less than 22. Systolic blood pressure is greater than 100. Patient has a qSOFA score of 0- Negative Sepsis Screen. Suicide/Homicide risk assessment- the patient denies having any suicidal and/or homicidal ideations and does not present with any other emotional, behavioral or mental health complaints. Status: Patient is not a program services planner or dependent. Transition of care: patient was not received from another setting of care. 01:37 Acuity: JUAN FRANCISCO Level 3 nn1 01:37 Method Of Arrival: Walkin/Carried/Asstd nn1 Triage Assessment: 01:43 General: Appears in no apparent distress, Behavior is appropriate for age, cooperative. nn1 Pain: Location: right lower quadrant, left lower quadrant and pelvis Pain currently is 7 out of 10 on a pain scale. Quality of pain is described as stabbing, Pain began 2-3 days ago. HIV screening NA for this visit Offered previously. The patient is triaged at the bedside. See Assessment in Nurses Notes section of ED record. Neurological: No deficits noted. Respiratory: Airway is patent Respiratory effort is even, unlabored, Respiratory pattern is regular, symmetrical. GI: Abdomen is non- distended : Reports vaginal bleeding that is spotty Dark red Pressure with urination. 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 none - PMHx: Kidney stones; - PSHx: Varicose Vein Repair; Hernia repair; Ureteral Stent- Left; - The history from nurses notes was reviewed: but my personal history reveals: She does not have vaginal bleeding as documented . - Social history: Smoking status: Patient states was never smoker of tobacco. No barriers to communication noted, The patient speaks fluent Kinyarwanda, Speaks appropriately for age. - : The pt / caregiver states he / she is not on anticoagulants. Home medication list is obtained from the patient. - Hospitalizations: : No recent hospitalization is reported. - Exposure Risk Screening:: None identified. - Immunization history:: All immunizations up-to-date. - Family history: Not pertinent. - Social history:: the patient is a non-smoker, the patient does not drink alcohol. Screenin:03 Screening information is obtained from the patient. Fall risk: No risks identified. kas2 Assistance ADL's: requires no assistance with activities of daily living. Abuse/DV Screen: The patient / caregiver reports he/she is: not in a situation that causes fear, pain or injury. Nutritional screening: No deficits noted. Advance Directives: Currently, there is no health care proxy. There is no active DNR order. There is no living will. There is no Power of Player Services Representative. home support is adequate. Assessment: 02:02 General: Appears in no apparent distress, uncomfortable, well nourished, well groomed, kas2 Behavior is appropriate for age, cooperative. Pain: Location: pelvis and abdomen and left lower quadrant and right lower quadrant Pain currently is 4 out of 10 on a pain scale. Neurological: Level of Consciousness is awake, alert, Oriented to person, place, time. Cardiovascular: Capillary refill < 3 seconds Heart tones S1 S2 present Rhythm is regular. Respiratory: Airway is patent Respiratory effort is even, unlabored, Respiratory pattern is regular, symmetrical, Breath sounds are clear bilaterally. Derm: Skin is intact, Skin is dry, Skin is pink, warm & dry. Skin temperature is warm. 03:20 General: Appears in no apparent distress, comfortable, Behavior is appropriate for age, kas2 cooperative. Pain: Denies pain. Neurological: Level of Consciousness is awake, alert, Oriented to person, place, time. Respiratory: Airway is patent Respiratory effort is even, unlabored, Respiratory pattern is regular, symmetrical. Derm: Skin is intact, Skin is dry, Skin is pink, warm & dry. Skin temperature is warm. 04:10 General: Patient laying in bed with TV on. No apparent distress noted. Appears kas2 comfortable. Denies pain or discomfort at this time. Call santos within reach. Will continue to monitor.. Vital Signs: 01:42 BP 139 / 84; Pulse 78; Resp 18; Temp 98.4; Pulse Ox 98% on R/A; Weight 61.23 kg; Height nn1 5 ft. 3 in. (160.02 cm); Pain 6/10; 04:17 BP 128 / 78; Pulse 72; Resp 18; Temp 98.0(O); Pulse Ox 99% on R/A; Pain 0/10; kas2 01:42 Body Mass Index 23.91 (61.23 kg, 160.02 cm) nn1 Vitals: 01:42 Log In Time: August 18, 2016 at 01:30. nn1 ED Course: 01:32 Patient visited by Andre Do Reg. pm4 01:32 Patient moved to Waiting pm4 01:40 Triage Initiated nn1 01:46 Gail Huggins RN is Primary Nurse. nn1 01:46 Patient moved to 9 nn1 02:06 Patient visited by Gail Huggins RN. kas2 02:11 Patient visited by Gail Huggins RN. kas2 02:12 Nicolás Menjivar MD is Attending Physician. pc 02:18 Patient visited by Nicolás Menjivar MD. pc 02:50 Patient visited by Gail Huggins RN. kas2 02:50 Inserted saline lock: 22 gauge in left hand The patient tolerated the procedure well. kas2 No procedures done that require assistance. 03:00 Patient visited by Gail Huggins RN. kas2 03:20 [facility] Payment Agreement was scanned into [employer] and attached to record. hs2 03:22 Patient name changed from Katya\S\A\S\Kelly\S\ to Katya\S\Josefina\S\Kelly. EDMS 03:33 Patient visited by Gail Huggins RN. kas2 03:59 Danial Adames is Referral Physician. pc 04:03 CT ABD & PELVIS: No Contrast Returned. EDMS 04:20 Patient visited by Gail Huggins RN. kas2 04:20 The patient / caregiver is instructed regarding the plan of care and ED course. kas2 04:20 Discontinued IV bleeding controlled, pressure dressing applied, No redness/swelling at kas2 site. 08/19 11:13 Radiology Report was scanned into [employer] and attached to record. gb Administered Medications: 08/18 02:50 Drug: ketorolac 30 mg [ketorolac 30 mg/mL (1 mL) injection solution (1 mL)] Route: IVP; kas2 Site: left hand; 04:05 Drug: oxyCODONE-acetaminophen 4 pack 1 packets [oxycodone-acetaminophen 5 mg-325 mg kas2 tablet (1 tabs)] {Co-Signature: af2 (Cielo Moon RN).} Route: PO; Order Results: Radiology Order: CT ABD & PELVIS: No Contrast Test: CT ABD & PELVIS: No Contrast REASON FOR EXAMINATION: Renal colic; ; CLINICAL HISTORY:; TECHNIQUE: Multiple axial and coronal CT images were obtained through the abdomen and pelvis without; administration of oral or IV contrast material.; COMMENTS:; The liver is of uniform attenuation without mass or defect. There is no intra or extrahepatic biliary; ductal dilatation. The spleen is normal. The gallbladder is within normal limits. The pancreas is of; normal contour and attenuation characteristics. There is no evidence of adrenal mass.; Bilateral renal stones with the largest measuring 8 mm on the left side.; 3 mm obstructing calculus in the distal third of the left ureter.; Moderate left hydroureteronephrosis.; There is no evidence for appendicitis. There is no bowel wall thickening. No evidence for small or la; rge bowel obstruction. There is no evidence of abdominal ascites or lymphadenopathy.; There is no evidence of intrinsic or extrinsic bladder mass. There is no pelvic ascites or lymphadeno; paras.; Diffuse thickening of the bladder.; Images of the lung bases show no evidence of pleural or parenchymal mass. There are no pleural effusi; ons.; The bony structures are free of lytic or blastic lesions.; IMPRESSION:; Diffuse thickening of the wall of the bladder.; Obstructing stone in the distal third of the left ureter.; Moderate left hydroureteronephrosis.; Bilateral nephrolithiasis.; Thank you for your kind referral of this patient.; ; Outcome: 03:59 Discharge ordered by Provider. 04:20 Discharge Assessment: patient administered narcotics - no. The following High Risk kas2 Discharge criteria are identified: None. Discharged to home ambulatory. Condition: good Condition: stable Condition: improved. CT Study completed. Property :Personal belongings accompany Pt. 04:20 Patient left the ED. [facility] Signatures: Dispatcher [employer] Nicolás Luna MD MD pc Huma Phan, Reg Reg gb Manuel Patel RN RN nn1 Jannet Garcia, Reg Reg hs2 Gail Huggins RN RN kas2 Andre Do, Reg Reg pm4 Cielo Moon RN af2 Chart Complete MTDD
== END 2016-08-18 04:20 | disposition home or self-care (01) ==
LOC: M ED 01:30
DX: N13.2 Hydronephrosis with renal and ureteral calculous obstruction (principal); Z98.890 Other specified postprocedural states; Z87.442 Personal history of urinary calculi; Z88.2 Allergy status to sulfonamides; Z88.5 Allergy status to narcotic agent
CPT/HCPCS: 74176; 96374; 99284; J1885

== ENCOUNTER → 2016-08-24 | Outpatient (REF) | payer OTHER | LOC: M SMT 16:47 | PROVIDERS: ATTEND Urology | DX: N20.0 Calculus of kidney (principal) ==

== ENCOUNTER 2017-08-19 14:50 | Emergency (ER) | payer OTHER | END 2017-08-19 16:16 | disposition home or self-care (01) | LOC: M ED 14:50 | DX: M79.642 Pain in left hand (principal); Z88.5 Allergy status to narcotic agent | CPT/HCPCS: 99282 ==

== ENCOUNTER 2017-09-26 13:43 | Outpatient (RCR) | payer OTHER | END 2017-10-08 | LOC: M OT 10-03 13:45 | DX: Z51.89 Encounter for other specified aftercare (principal); S63.8X2A Sprain of other part of left wrist and hand, initial encounter; R20.2 Paresthesia of skin; Y92.89 Other specified places as the place of occurrence of the external cause; Y99.9 Unspecified external cause status; Y93.9 Activity, unspecified | CPT/HCPCS: 97110 ==

== ENCOUNTER 2017-10-11 07:00 | Outpatient (RCR) | payer OTHER | END 2017-11-07 | LOC: M OT 07:00 | DX: Z47.89 Encounter for other orthopedic aftercare (principal); S63.8X2A Sprain of other part of left wrist and hand, initial encounter; R20.2 Paresthesia of skin | CPT/HCPCS: 97110 ==

== ENCOUNTER → 2018-03-02 | Outpatient (REF) | payer OTHER | LOC: M LAB REF 10:56 | DX: L02.211 Cutaneous abscess of abdominal wall (principal) ==

== ENCOUNTER 2018-08-26 10:51 | Emergency (ER) | payer OTHER ==
[~2018-08-26] VITALS: Ht 160 cm; Wt 65.9 kg
[~2018-08-26 10:51] MED LIST changes: +IBUP1TAB6 PO; -IBUP60TA PO; -NORC7.5T PO; +NORC7.5T35 PO; -OXYB5TA PO; +OXYB5TAB10 PO
--- NOTE | 2018-08-26 11:58 | REP ---
CHEST PA AND LATERAL: 08/26/2018. Comparison: 07/15/2008. Clinical history: Trauma, fell on ice, left-sided pain. Findings: Two-view show the lung welch well inflated. There is no pleural effusion, lateral pleural thickening, apical scarring or pneumothorax. There is no dense consolidation, atelectasis or mass. Some minor fibrotic changes in the bases are stable. Heart is not enlarged. Aorta is normal for age and unchanged. There is no widening of the mediastinum. Airway intact. Hilar contours symmetric and normal. The bony thorax shows no compression deformity in the thoracic spine. Visualized clavicles, shoulders and ribs were intact and symmetric. Please understand this study would be of limited utility for some rib fractures. Impression: 1. Negative chest. There is no effusion, lung contusion, pneumothorax or infiltrate. 2. No focal bone lesion in the spine or visualized ribs, clavicles and shoulders. Electronically Signed by Yakov Marina MD 08/26/2018 07:43 P
--- NOTE | 2018-08-26 12:00 | REP ---
RIGHT ANKLE COMPLETE: 08/26/2018. Comparison: 07/25/2008. Clinical history: Right ankle pain, fell on ice. Trauma with lateral pain. Findings: Four views are provided. There is some soft tissue swelling anterolateral aspect of the ankle best seen on the frontal view. No avulsion, displaced fracture of the radius or ulna, or disruption of the ankle mortise joint which appears symmetric in width throughout. No talar dome osteochondral defect. Plantar calcaneal spur is again seen and there is a Achilles insertional spur also present. Subtalar joints intact. No other significant findings. Impression: 1. Heel spurs and some minor soft tissue swelling about the anterolateral aspect of the ankle, but no visible or displaced fracture nor disruption of the mortise joint. Electronically Signed by Yakov Marina MD 08/26/2018 07:43 P
[2018-08-26 12:09] VITALS: BP 129/91
== END 2018-08-26 12:16 | disposition home or self-care (01) ==
LOC: M ED 10:51
DX: S93.401A Sprain of unspecified ligament of right ankle, initial encounter (principal); S90.511A Abrasion, right ankle, initial encounter; S70.01XA Contusion of right hip, initial encounter; S29.011A Strain of muscle and tendon of front wall of thorax, initial encounter; W00.9XXA Unspecified fall due to ice and snow, initial encounter; Y92.099 Unspecified place in other non-institutional residence as the place of occurrence of the external cause; Y93.9 Activity, unspecified; Y99.9 Unspecified external cause status; M77.31 Calcaneal spur, right foot; Z79.899 Other long term (current) drug therapy; Z88.5 Allergy status to narcotic agent

== ENCOUNTER 2020-05-10 15:44 | Emergency (ER) | payer OTHER ==
[~2020-05-10] VITALS: Ht 160 cm; Wt 75.0 kg
[~2020-05-10 15:44] MED LIST changes: +NORC1TAB8 PO; -NORC7.5T35 PO
[2020-05-10] MEDS ORDERED: ALEN70TA74 (15:55)
[2020-05-10] MEDS ORDERED: NS 500 ML IV ONE ×2 (16:15→18:30)
[2020-05-10] MEDS ORDERED: ONDANSETRON 4MG/2ML VIAL IV ONE (16:15)
[2020-05-10] MEDS ORDERED: KETOROLAC 30 MG/ML 1ML VIAL IV ONE (16:45)
[2020-05-10 16:54] LABS: BASO # 0.1 10^3/uL (0.0-0.2); BASO % 0.7 % (0.0-1.0); EOS % 0.2 % (0.0-3.0); HEMATOCRIT 47.3 % (36.0-47.0); LYMPH # 1.7 10^3/uL (1.5-5.0); LYMPH % 8.8 % (24.0-44.0); MEAN CORPUSCULAR HEMOGLOBIN 31.3 pg (27.0-33.0); MEAN CORPUSCULAR HGB CONC 33.8 g/dl (32.0-36.5); MEAN CORPUSCULAR VOLUME 92.4 fl (80.0-96.0); MONO % 5.3 % (0.0-5.0); NEUTROPHILS # 15.9 10^3/uL (1.5-8.5); NEUTROPHILS % 83.9 % (36.0-66.0); PLATELET COUNT, AUTOMATED 293 10^3/uL (150-450); RED BLOOD COUNT 5.12 10^6/uL (4.00-5.40); WHITE BLOOD COUNT 18.9 10^3/uL (4.0-10.0)
[2020-05-10 17:28] LABS: HCG, SERUM QUALITATIVE NEGATIVE (NEGATIVE)
[2020-05-10 17:32] LABS: ALBUMIN 4.2 GM/DL (3.2-5.2); ALT/SGPT 43 U/L (12-78); BILIRUBIN,DIRECT 0.1 MG/DL (0.0-0.2); BILIRUBIN,TOTAL 0.5 MG/DL (0.2-1.0); CPK CREATINE PHOSPHOKINASE 191 U/L (26-192); LIPASE 105 U/L (73-393); MB/CK RELATIVE INDEX 1.05 (< OR =4); TOTAL PROTEIN 7.3 GM/DL (6.4-8.2); TROPONIN I < 0.02 NG/ML (< 0.10)
--- NOTE | 2020-05-10 17:55 | REPVR ---
PROCEDURE INFORMATION: Exam: CT Abdomen And Pelvis Without Contrast Exam date and time: 05/10/2020 5:36 PM Age: 54 years old Clinical indication: Abdominal pain; Flank; Right; Additional info: R flank pain, hematuria TECHNIQUE: Imaging protocol: Computed tomography of the abdomen and pelvis without contrast. Radiation optimization: All CT scans at this facility use at least one of these dose optimization techniques: automated exposure control; mA and/or kV adjustment per patient size (includes targeted exams where dose is matched to clinical indication); or iterative reconstruction. COMPARISON: CT ABD PELVIS W/O CONTRAST 08/18/2016 2:36 AM FINDINGS: Mediastinal space: A small hiatal hernia is present. Liver: There is a diffuse decrease in hepatic parenchymal density, consistent with steatosis. Mild hepatomegaly. Gallbladder and bile ducts: Normal. No calcified stones. No ductal dilation. Pancreas: Normal. No ductal dilation. Spleen: Normal. No splenomegaly. Adrenal glands: Normal. No mass. Kidneys and ureters: Bilateral nonobstructive renal calculi measuring up to 1.3 cm in the lower pole of the left kidney. There is a 6 mm. obstructive ureteral calculus located distal right ureter at the UV junction resulting in moderate proximal hydroureteronephrosis. There is moderate periureteral and perinephric stranding. A small urinoma demonstrated. Stomach and bowel: Unremarkable. No obstruction. No mucosal thickening. Appendix: No evidence of appendicitis. Intraperitoneal space: Unremarkable. No free air. No significant fluid collection. Vasculature: The aortoiliac vessels demonstrate mild atherosclerotic calcification. Lymph nodes: Unremarkable. No enlarged lymph nodes. Urinary bladder: Unremarkable as visualized. Reproductive: Unremarkable as visualized. Bones/joints: Unremarkable. No acute fracture. Soft tissues: There is a small umbilical hernia. There is no evidence of incarceration. Status post mesh repair of a mid ventral abdominal wall hernia. IMPRESSION: 1. There is a diffuse decrease in hepatic parenchymal density, consistent with steatosis. Mild hepatomegaly. 2. A small hiatal hernia is present. 3. Bilateral nonobstructive renal calculi measuring up to 1.3 cm in the lower pole of the left kidney. 4. There is a 6 mm. obstructive ureteral calculus located distal right ureter at the UV junction resulting in moderate proximal hydroureteronephrosis. There is moderate periureteral and perinephric stranding. A small urinoma demonstrated. Electronically signed by: Andre Matson On 05/10/2020 17:55:40 PM
[2020-05-10] MEDS ORDERED: cefTRIAXone SOD 1 GM in D5W MINI-BAG PLUS 50 ML IV ONE (19:00)
[2020-05-10] MEDS ORDERED: KEFL500C17 PO (19:21)
[2020-05-10] MEDS ORDERED: FLOM0.4C39 PO (19:22)
[2020-05-10 19:34] VITALS: BP 161/82
== END 2020-05-10 19:47 | disposition home or self-care (01) ==
LOC: M ED 15:44
DX: N20.1 Calculus of ureter (principal); N39.0 Urinary tract infection, site not specified; M81.0 Age-related osteoporosis without current pathological fracture; Z78.0 Asymptomatic menopausal state; Z79.899 Other long term (current) drug therapy; Z88.5 Allergy status to narcotic agent
CPT/HCPCS: 36415; 74176; 80047; 80076; 81001; 82550; 82553; 83690; 84703; 85025; 96361; 96365; 96375; 99284; J0696; J1885; J2405

== ENCOUNTER → 2020-05-20 | Outpatient (REF) | payer OTHER ==
[~2020-05-20] MED LIST changes: +ALEN70TA74; +FLOM0.4C39 PO; +KEFL500C17 PO
[2020-05-21 13:57] LABS: APPEARANCE, URINE CLEAR (CLEAR); BACTERIA, URINE AUTO 2+ (NEGATIVE); BILIRUBIN, URINE AUTO NEGATIVE (NEGATIVE); BLOOD, URINE BLOOD 1+ (NEGATIVE); COLOR, URINE YELLOW (YELLOW); GLUCOSE, URINE (UA) AUTO NEGATIVE (NEGATIVE); KETONE, URINE AUTO NEGATIVE (NEGATIVE); LEUKOCYTE ESTERASE, URINE AUTO TRACE (NEGATIVE); MUCUS, URINE SMALL (NEGATIVE); NITRITE, URINE AUTO NEGATIVE (NEGATIVE); PROTEIN, URINE AUTO NEGATIVE (NEGATIVE); RBC, URINE AUTO 2 /HPF (0-3); SPECIFIC GRAVITY URINE AUTO 1.008 (1.002-1.035); SQUAMOUS EPITHELIAL CELL UR AU 1 /HPF (0-6); UROBILINOGEN, URINE AUTO 0.2 mg/dL (0.0-2.0); WBC, URINE AUTO 4 /HPF (0-3)
== END ==
LOC: M SMT 12:50
PROVIDERS: ATTEND Urology
DX: N39.0 Urinary tract infection, site not specified (principal)

== ENCOUNTER → 2020-05-27 | Outpatient (CLI) | payer OTHER ==
--- NOTE | 2020-05-28 04:08 | REP ---
INDICATION: HYDRONEPHROSIS WITH RENAL AND URETERAL CALCULOUS OBSTRUCTION COMPARISON: CT dated 05/10/2020 TECHNIQUE: Real time hartley scale ultrasound examination using curved array transducer. FINDINGS: The bilateral kidneys are normal in reniform shape and size without hydronephrosis. Right kidney measures 13.3 x 5.4 x 5.2 cm and demonstrates increased medullary and parenchymal echotexture suggesting the possibility of medullary sponge kidney versus chronic medical renal disease. No discrete focal echogenic focus with shadowing to suggest calculi noted. No perinephric fluid collection identified. No significant cyst or mass. Left kidney measures 11.5 x 4.1 x 4.9 cm and demonstrates cortical thinning with increased parenchymal echotexture suggesting medullary sponge kidney along with 12x13 mm nonobstructing lower pole calculus. No perinephric fluid collection identified. No significant cyst or mass. IMPRESSION: 1. Bilateral cortical thinning and increased parenchymal echotexture along with prominent medullary pyramids. Differential diagnosis includes chronic age-related renal disease as well as medullary sponge kidney. 2. 13 mm nonobstructing lower pole calculus in the left kidney. No hydronephrosis. <Electronically signed by Minesh Contreras > 05/28/20 [id number]
== END ==
LOC: M RAD 13:42
PROVIDERS: ATTEND Urology
DX: N20.0 Calculus of kidney (principal)

== ENCOUNTER → 2020-08-04 | Outpatient (CLI) | payer OTHER ==
[~2020-08-04] MED LIST changes: -ALEN70TA74; +ALEN70TA82
--- NOTE | 2020-08-05 05:51 | REP ---
INDICATION: PAIN COMPARISON: None. TECHNIQUE: AP, lateral, bilateral oblique views left wrist. FINDINGS: The carpal bones, surrounding osseous structures, soft tissues, and joint spaces are normal/age-appropriate. There is no evidence for acute fracture or dislocation. No subcutaneous emphysema or radiodense foreign body. IMPRESSION: Normal age-appropriate left wrist series. No acute fracture or dislocation. <Electronically signed by Minesh Contreras > 08/05/20 [id number]
== END ==
LOC: M WUC 13:27
PROVIDERS: ATTEND Physician Assistant
DX: M25.532 Pain in left wrist (principal)

== ENCOUNTER → 2020-10-06 | Outpatient (CLI) | payer OTHER ==
--- NOTE | 2020-10-06 13:34 | REP ---
INDICATION: KIDNEY STONE COMPARISON: 05/10/2020 TECHNIQUE: Axial noncontrast images from the lung bases to the pubic symphysis with coronal and sagittal reformations. This CT examination was performed using the following dose reduction techniques: Automated exposure control, adjustment of mA and/or kv according to the patient's size, and use of iterative reconstruction technique. FINDINGS: Liver demonstrates fatty infiltration without focal hepatic lesion. Spleen, pancreas, gallbladder, and bilateral adrenal glands are normal. The right kidney includes few small nonobstructing calculi up to 3 mm while the left kidney includes multiple calculi including 1.5 cm nonobstructing calculus in the lower pole. There is no evidence for acute perinephric stranding or obstructing ureteral calculus. The enteric system is without obstruction or acute inflammatory process. Normal terminal ileum and appendix are identified in the right lower quadrant. Few scattered diverticula noted without acute diverticulitis. Pelvis demonstrates collapsed normal bladder and age-appropriate uterus/adnexa. No pelvic free fluid. No ascites. No free air. No adenopathy. Abdominal aorta without aneurysm. Musculoskeletal structures are intact. Lung bases are clear. IMPRESSION: 1. Non-obstructing renal calculi (left greater than right) as described above. 2. Hepatosteatosis. <Electronically signed by Minesh Contreras > 10/06/20 [id number]
== END ==
LOC: M RAD 13:07
PROVIDERS: ATTEND Nurse Practitioner Women's Health
DX: N20.0 Calculus of kidney (principal); K76.0 Fatty (change of) liver, not elsewhere classified

== ENCOUNTER → 2020-11-21 | Outpatient (CLI) | payer OTHER ==
[2020-11-21 11:47] LABS: BASO # 0.1 10^3/uL (0.0-0.2); BASO % 0.8 % (0.0-1.0); EOS # 0.1 10^3/uL (0.0-0.5); EOS % 1.2 % (0.0-3.0); HEMATOCRIT 45.5 % (36.0-47.0); HEMOGLOBIN 15.6 g/dl (12.0-15.5); LYMPH # 2.1 10^3/uL (1.5-5.0); LYMPH % 19.5 % (24.0-44.0); MEAN CORPUSCULAR HEMOGLOBIN 32.3 pg (27.0-33.0); MEAN CORPUSCULAR HGB CONC 34.3 g/dl (32.0-36.5); MEAN CORPUSCULAR VOLUME 94.2 fl (80.0-96.0); MONO # 0.7 10^3/uL (0.0-0.8); MONO % 6.4 % (2.0-8.0); NEUTROPHILS # 7.6 10^3/uL (1.5-8.5); NEUTROPHILS % 71.5 % (36.0-66.0); PLATELET COUNT, AUTOMATED 250 10^3/uL (150-450); RED BLOOD COUNT 4.83 10^6/uL (4.00-5.40); WHITE BLOOD COUNT 10.6 10^3/uL (4.0-10.0)
[2020-11-21 12:14] LABS: ALT/SGPT 45 U/L (12-78); BILIRUBIN,TOTAL 0.4 MG/DL (0.2-1.0); BLOOD UREA NITROGEN 13 MG/DL (7-18); CALCIUM LEVEL 9.3 MG/DL (8.5-10.1); CARBON DIOXIDE LEVEL 26 MEQ/L (21-32); CHLORIDE LEVEL 109 MEQ/L (98-107); CHOLESTEROL LEVEL 233 MG/DL (<200); CHOLESTEROL RISK RATIO 4.755 (<5); FERRITIN 386 NG/ML (8-252); GLOMERULAR FILTRATION RATE > 60.0 (>51); GLUCOSE, FASTING 137 MG/DL (70-100); HDL CHOLESTEROL 49 MG/DL (>40); LDL CHOLESTEROL 145 MG/DL (<100); MAGNESIUM LEVEL 1.9 MG/DL (1.8-2.4); NON-HDL-C 184 MG/DL; SODIUM LEVEL 142 MEQ/L (136-145); TOTAL PROTEIN 7.2 GM/DL (6.4-8.2); TRIGLYCERIDES LEVEL 196 MG/DL (<150)
[2020-11-21 12:54] LABS: HEMOGLOBIN A1c 4.9 %
== END ==
LOC: M LAB 11:06
PROVIDERS: ATTEND Nurse Practitioner Family
DX: E78.00 Pure hypercholesterolemia, unspecified (principal); R79.89 Other specified abnormal findings of blood chemistry; Z79.899 Other long term (current) drug therapy

== ENCOUNTER → 2021-02-23 | Outpatient (CLI) | payer OTHER ==
[2021-02-23 11:17] LABS: BASO # 0.1 10^3/uL (0.0-0.2); EOS # 0.1 10^3/uL (0.0-0.5); EOS % 1.7 % (0.0-3.0); HEMATOCRIT 45.1 % (36.0-47.0); HEMOGLOBIN 15.2 g/dl (12.0-15.5); LYMPH # 1.8 10^3/uL (1.5-5.0); LYMPH % 21.6 % (24.0-44.0); MEAN CORPUSCULAR HEMOGLOBIN 32.2 pg (27.0-33.0); MEAN CORPUSCULAR HGB CONC 33.7 g/dl (32.0-36.5); MEAN CORPUSCULAR VOLUME 95.6 fl (80.0-96.0); MONO # 0.7 10^3/uL (0.0-0.8); MONO % 8.2 % (2.0-8.0); NEUTROPHILS # 5.5 10^3/uL (1.5-8.5); PLATELET COUNT, AUTOMATED 246 10^3/uL (150-450); RED BLOOD COUNT 4.72 10^6/uL (4.00-5.40); WHITE BLOOD COUNT 8.2 10^3/uL (4.0-10.0)
[2021-02-23 11:46] LABS: ALT/SGPT 48 U/L (12-78); BILIRUBIN,TOTAL 0.8 MG/DL (0.2-1.0); BLOOD UREA NITROGEN 16 MG/DL (7-18); CALCIUM LEVEL 8.8 MG/DL (8.5-10.1); CARBON DIOXIDE LEVEL 26 MEQ/L (21-32); CHLORIDE LEVEL 108 MEQ/L (98-107); CHOLESTEROL LEVEL 254 MG/DL (<200); CHOLESTEROL RISK RATIO 6.195 (<5); CREATININE FOR GFR 0.74 MG/DL (0.55-1.30); FERRITIN 567 NG/ML (8-252); GLOMERULAR FILTRATION RATE > 60.0 (>51); GLUCOSE, FASTING 116 MG/DL (70-100); HDL CHOLESTEROL 41 MG/DL (>40); LDL CHOLESTEROL 156 MG/DL (<100); MAGNESIUM LEVEL 2.1 MG/DL (1.8-2.4); NON-HDL-C 213 MG/DL; POTASSIUM SERUM 4.6 MEQ/L (3.5-5.1); SODIUM LEVEL 140 MEQ/L (136-145); TOTAL PROTEIN 7.1 GM/DL (6.4-8.2); TRIGLYCERIDES LEVEL 287 MG/DL (<150)
[2021-02-23 11:47] LABS: HEMOGLOBIN A1c 5.2 %
== END ==
LOC: M LAB 10:21
PROVIDERS: ATTEND Nurse Practitioner Family
DX: E78.00 Pure hypercholesterolemia, unspecified (principal); R79.89 Other specified abnormal findings of blood chemistry; Z79.899 Other long term (current) drug therapy

== ENCOUNTER 2021-02-27 21:16 | Emergency (ER) | payer OTHER ==
[~2021-02-27] VITALS: Ht 160 cm; Wt 72.6 kg
[2021-02-28] MEDS ORDERED: BOOSTRIX/ADACEL VACCINE (DIPHTH/PERTUSS/ACELL/TETANUS) 0.5ML SYR IM ONE (07:05)
[2021-02-28] MEDS ORDERED: LIDOCAINE 1% MDV 20ML VIAL INFIL ONE (07:05)
[2021-02-28] MEDS ORDERED: AUGMENTIN 875 MG TAB PO ONE (08:00)
[2021-02-28] MEDS ORDERED: AUGM875T28 PO (08:04)
[2021-02-28] MEDS ORDERED: NEOSPORIN OINT 0.9 GM PKT TOP ONE (08:10)
[2021-02-28 08:27] VITALS: BP 136/95
== END 2021-02-28 08:28 | disposition home or self-care (01) ==
LOC: M ED 21:16
DX: S61.411A Laceration without foreign body of right hand, initial encounter (principal); S50.812A Abrasion of left forearm, initial encounter; S80.811A Abrasion, right lower leg, initial encounter; W55.03XA Scratched by cat, initial encounter; Y92.89 Other specified places as the place of occurrence of the external cause; Z88.5 Allergy status to narcotic agent

== ENCOUNTER → 2021-04-13 | Outpatient (CLI) | payer OTHER ==
[~2021-04-13] MED LIST changes: +AUGM875T28 PO
[2021-04-13 11:19] LABS: HEMATOCRIT 44.4 % (36.0-47.0); HEMOGLOBIN 15.3 g/dl (12.0-15.5); MEAN CORPUSCULAR HEMOGLOBIN 32.4 pg (27.0-33.0); MEAN CORPUSCULAR HGB CONC 34.5 g/dl (32.0-36.5); MEAN CORPUSCULAR VOLUME 94.1 fl (80.0-96.0); PLATELET COUNT, AUTOMATED 260 10^3/uL (150-450); RED BLOOD COUNT 4.72 10^6/uL (4.00-5.40); WHITE BLOOD COUNT 9.5 10^3/uL (4.0-10.0)
[2021-04-13 11:26] LABS: APPEARANCE, URINE CLEAR (CLEAR); BACTERIA, URINE AUTO 2+ (NEGATIVE); BILIRUBIN, URINE AUTO NEGATIVE (NEGATIVE); BLOOD, URINE BLOOD 1+ (NEGATIVE); COLOR, URINE STRAW (YELLOW); GLUCOSE, URINE (UA) AUTO NEGATIVE (NEGATIVE); KETONE, URINE AUTO NEGATIVE (NEGATIVE); LEUKOCYTE ESTERASE, URINE AUTO TRACE (NEGATIVE); NITRITE, URINE AUTO NEGATIVE (NEGATIVE); PROTEIN, URINE AUTO NEGATIVE (NEGATIVE); RBC, URINE AUTO 1 /HPF (0-3); SPECIFIC GRAVITY URINE AUTO 1.005 (1.002-1.035); SQUAMOUS EPITHELIAL CELL UR AU 1 /HPF (0-6); UROBILINOGEN, URINE AUTO 0.2 mg/dL (0.0-2.0); WBC, URINE AUTO 6 /HPF (0-3)
[2021-04-13 11:30] LABS: INR 0.92; PROTHROMBIN TIME 12.7 SECONDS (12.7-14.5)
[2021-04-13 11:31] LABS: PARTIAL THROMBOPLASTIN TIME 26.7 SECONDS (25.9-37.0)
[2021-04-13 11:47] LABS: BLOOD UREA NITROGEN 16 MG/DL (7-18); CALCIUM LEVEL 8.8 MG/DL (8.5-10.1); CARBON DIOXIDE LEVEL 30 MEQ/L (21-32); CHLORIDE LEVEL 107 MEQ/L (98-107); CREATININE FOR GFR 0.88 MG/DL (0.55-1.30); GLOMERULAR FILTRATION RATE > 60.0 (>51); GLUCOSE, FASTING 103 MG/DL (70-100); POTASSIUM SERUM 3.8 MEQ/L (3.5-5.1); SODIUM LEVEL 141 MEQ/L (136-145)
[2021-04-13 11:50] LABS: HCG, SERUM QUALITATIVE NEGATIVE (NEGATIVE)
== END ==
LOC: M LAB 10:25
PROVIDERS: ATTEND Nurse Practitioner Women's Health
DX: Z01.818 Encounter for other preprocedural examination (principal); N20.0 Calculus of kidney

== ENCOUNTER → 2021-04-15 | Outpatient (CLI) | payer OTHER | LOC: M LABSMTC 10:06 | PROVIDERS: ATTEND Anesthesiology | DX: Z01.812 Encounter for preprocedural laboratory examination (principal); Z20.822 Contact with and (suspected) exposure to COVID-19 ==

== ENCOUNTER 2021-04-20 10:58 | Day surgery (SDC) | payer OTHER ==
[~2021-04-20] VITALS: Ht 160 cm; Wt 71.6 kg
[~2021-04-20 10:58] MED LIST changes: +LIDOCAINE 1% MDV 20ML VIAL SQ PRN; +LIDOCAINE 2% 100MG/5ML SDV (FOR ANES.) As Ordered ONE; +LR 1,000 ML IV ONE; +MIDAZOLAM INJ 2MG/2ML VIAL (J2250 PER 1MG) As Ordered ONE; +ONDANSETRON 4MG/2ML VIAL As Ordered ONE; +ceFAZolin SOD 2 GM in IV 1 EA IV ONE; +dexameTHASONE 4 MG/ML 1ML VIAL (J1100 PER 1MG) As Ordered ONE; +fentaNYL 250 MCG/5 ML INJECTION (J3010) As Ordered ONE; +propofoL 200 MG/20 ML VIAL As Ordered ONE
[2021-04-20] MEDS ORDERED: SIMV20TA22 PO (11:07)
[2021-04-20] MEDS ORDERED: CONRAY-60 60% 50ML VIAL (Q9961) As Ordered ONE (11:57)
[2021-04-20] MEDS ORDERED: ACETAMINOPHEN 1000MG 100ML IV BTL (OFIRMEV) (J0131 PER 10MG) As Ordered ONE (12:49)
[2021-04-20] MEDS ORDERED: OXYB5TAB10 PO (14:47)
[2021-04-20] MEDS ORDERED: OXYC1TAB23 PO (14:47)
--- NOTE | 2021-04-20 14:59 | REP ---
INDICATION: LEFT STENT PLACEMENT. COMPARISON: None. TECHNIQUE: Two spot views of the abdomen were obtained using a portable C-arm device during left-sided double pigtail stent placement in the renal collecting system. FINDINGS: Small amount of radiographic contrast is seen opacifying the left renal collecting system. The double pigtail stent is seen with the proximal portion in the region of the renal pelvis and the distal portion in the region of the urinary bladder on the left. 23 seconds of fluoroscopy time was provided Dr. Danial Adames for the procedure. IMPRESSION: As above <Electronically signed by Antonio Wong > 04/20/21 [id number]
[2021-04-20] MEDS ORDERED: fentaNYL 100 MCG/2 ML INJECTION (J3010) IV PRN (15:00)
[2021-04-20] MEDS ORDERED: LR 1,000 ML IV SCH (15:00)
[2021-04-20] MEDS ORDERED: PERCOCET 5MG/325MG TAB PO PRN ×2 (15:00→15:10)
[2021-04-20] MEDS ORDERED: METOCLOPRAMIDE INJ 10MG/2ML VIAL (J2765 PER 1) IV PRN (15:00)
[2021-04-20] MEDS ORDERED: ONDANSETRON 4MG/2ML VIAL IV PRN (15:00)
[2021-04-20] MEDS ORDERED: oxyBUTYnin 5 MG TAB PO PRN (15:10)
[2021-04-20 15:50] VITALS: BP 142/84
--- NOTE | 2021-04-20 16:17 | RO ---
OPERATIVE NOTE DATE OF OPERATION: 04/20/2021 PREOPERATIVE DIAGNOSIS: Left kidney stones. POSTOPERATIVE DIAGNOSIS: Left kidney stones. PROCEDURE: Cystoscopy, left ureteroscopy with laser lithotripsy and basket extraction of stones, left retrograde pyelogram with intraop interpretation of images, left ureteral stent placement. SURGEON: Danial Adames MD LUNCH WAGON OPERATOR: None. ANESTHESIA: General. OPERATIVE INDICATIONS: This is a 55-year-old female who was found to have a collection of left-sided kidney stones measuring up to about 1.2 cm in size. She is brought to the operating room today for treatment. DESCRIPTION OF PROCEDURE: The patient was brought to the operating room and general anesthesia induced. Prophylactic antibiotics were infused. She was placed in the dorsal lithotomy position and prepped and draped in usual sterile fashion. A rigid cystoscope was inserted in the urethral meatus and advanced into the bladder. A guidewire was advanced up the left collecting system. I then advanced the ureteral access sheath up the left collecting system. I went up the access sheath with a flexible ureteroscope and examined the left kidney. Within the middle to lower calyces there was a collection of stones measuring up to about 1.2 cm in size. These stones were all fragmented into smaller pieces using 272 micron laser fiber. The majority of the larger fragments were removed using a basket. I then dusted the remainder of the stone fragments until they were small enough where she should be able to pass them. Once this was done a retrograde pyelogram was performed and was notable for mild left hydronephrosis with no extravasation. I then withdrew the ureteroscope along with the access sheath and no additional stones were seen inside the ureter. I utilized the guidewire to advance a 6-[place] x 22-32 cm JJ ureteral stent up the left collecting system. Wire was removed and there were adequate curls of the stent left in pelvis and bladder. The bladder was emptied of all fluids and this marked the conclusion of the procedure. The patient was taken out of the dorsal lithotomy position, awakened from anesthesia and transferred to recovery room in stable condition. ESTIMATED BLOOD LOSS: 5 mL. COMPLICATIONS: None. SPECIMEN: Kidney stone fragments. PLAN: The patient will follow up in urology clinic in a few weeks for stent removal. We will get imaging prior to assess residual stone burden. [facility] MEDICAL CENTERMiranda
== END 2021-04-20 16:50 | disposition home or self-care (01) ==
LOC: M SDC 10:58
PROVIDERS: ATTEND Urology
DX: N20.0 Calculus of kidney (principal); E78.00 Pure hypercholesterolemia, unspecified; M85.80 Other specified disorders of bone density and structure, unspecified site; Z87.442 Personal history of urinary calculi; Z88.5 Allergy status to narcotic agent; Z79.899 Other long term (current) drug therapy
CPT/HCPCS: 52356; 74420; 82365; 88300; C1769; C1894; C2617; J0131; J0690; J1100; J2250; J2405; J3010; Q9961

== ENCOUNTER → 2021-04-28 | Outpatient (CLI) | payer OTHER ==
[~2021-04-28] MED LIST changes: -LIDOCAINE 1% MDV 20ML VIAL SQ PRN; -LIDOCAINE 2% 100MG/5ML SDV (FOR ANES.) As Ordered ONE; -LR 1,000 ML IV ONE; -MIDAZOLAM INJ 2MG/2ML VIAL (J2250 PER 1MG) As Ordered ONE; -ONDANSETRON 4MG/2ML VIAL As Ordered ONE; +OXYC1TAB23 PO; +SIMV20TA22 PO; -ceFAZolin SOD 2 GM in IV 1 EA IV ONE; -dexameTHASONE 4 MG/ML 1ML VIAL (J1100 PER 1MG) As Ordered ONE; -fentaNYL 250 MCG/5 ML INJECTION (J3010) As Ordered ONE; -propofoL 200 MG/20 ML VIAL As Ordered ONE
--- NOTE | 2021-04-28 13:42 | REP ---
INDICATION: CALCULUS OF KIDNEY. COMPARISON: Multiple the latest 08/17/2016 FINDINGS: A double pigtail stent is seen on the left the proximal portion of which is in the region of the renal pelvis and the distal portion of which is in the region of the urinary bladder on the left. Left renal calcifications are identified status quo. There are multiple calcifications in the pelvis all appear stable. No abnormal calcifications are seen superimposed over the right nephric silhouette which is partially obscured by bowel content. There is no change in the osseous structures. IMPRESSION: As above <Electronically signed by Antonio Wong > 04/28/21 [id number]
== END ==
LOC: M RAD 11:20
PROVIDERS: ATTEND Urology
DX: N20.0 Calculus of kidney (principal)

== ENCOUNTER → 2021-05-19 | Outpatient (CLI) | payer OTHER ==
[2021-05-19 11:36] LABS: BASO # 0.1 10^3/uL (0.0-0.2); BASO % 0.9 % (0.0-1.0); EOS # 0.1 10^3/uL (0.0-0.5); EOS % 1.8 % (0.0-3.0); HEMATOCRIT 43.1 % (36.0-47.0); HEMOGLOBIN 14.8 g/dl (12.0-15.5); LYMPH # 2.2 10^3/uL (1.5-5.0); LYMPH % 29.7 % (24.0-44.0); MEAN CORPUSCULAR HEMOGLOBIN 32.5 pg (27.0-33.0); MEAN CORPUSCULAR HGB CONC 34.3 g/dl (32.0-36.5); MEAN CORPUSCULAR VOLUME 94.5 fl (80.0-96.0); MONO # 0.7 10^3/uL (0.0-0.8); MONO % 8.9 % (2.0-8.0); NEUTROPHILS # 4.3 10^3/uL (1.5-8.5); PLATELET COUNT, AUTOMATED 233 10^3/uL (150-450); RED BLOOD COUNT 4.56 10^6/uL (4.00-5.40); WHITE BLOOD COUNT 7.4 10^3/uL (4.0-10.0)
[2021-05-19 12:25] LABS: ALBUMIN 3.9 GM/DL (3.2-5.2); ALT/SGPT 44 U/L (12-78); BILIRUBIN,TOTAL 0.7 MG/DL (0.2-1.0); BLOOD UREA NITROGEN 15 MG/DL (7-18); CALCIUM LEVEL 9.2 MG/DL (8.5-10.1); CARBON DIOXIDE LEVEL 26 MEQ/L (21-32); CHLORIDE LEVEL 109 MEQ/L (98-107); CHOLESTEROL LEVEL 221 MG/DL (<200); CREATININE FOR GFR 0.88 MG/DL (0.55-1.30); FERRITIN 552 NG/ML (8-252); GLOMERULAR FILTRATION RATE > 60.0 (>51); GLUCOSE, FASTING 116 MG/DL (70-100); HDL CHOLESTEROL 50 MG/DL (>40); LDL CHOLESTEROL 132 MG/DL (<100); MAGNESIUM LEVEL 2.1 MG/DL (1.8-2.4); NON-HDL-C 171 MG/DL; POTASSIUM SERUM 4.3 MEQ/L (3.5-5.1); SODIUM LEVEL 142 MEQ/L (136-145); TOTAL PROTEIN 6.9 GM/DL (6.4-8.2); TRIGLYCERIDES LEVEL 193 MG/DL (<150)
[2021-05-19 16:09] LABS: HEMOGLOBIN A1c 5.2 %
== END ==
LOC: M LAB 10:49
PROVIDERS: ATTEND Nurse Practitioner Family
DX: Z00.01 Encounter for general adult medical examination with abnormal findings (principal); R79.89 Other specified abnormal findings of blood chemistry; Z79.899 Other long term (current) drug therapy; E78.00 Pure hypercholesterolemia, unspecified; E83.42 Hypomagnesemia; Z13.29 Encounter for screening for other suspected endocrine disorder; E83.19 Other disorders of iron metabolism; Z13.1 Encounter for screening for diabetes mellitus

== ENCOUNTER → 2021-09-04 | Outpatient (CLI) | payer OTHER | LOC: M WUC 12:38 | PROVIDERS: ATTEND Physician Assistant | DX: S23.41XA Sprain of ribs, initial encounter (principal); X58.XXXA Exposure to other specified factors, initial encounter; Y92.89 Other specified places as the place of occurrence of the external cause; Y93.89 Activity, other specified; Y99.8 Other external cause status ==

== ENCOUNTER → 2021-09-23 | Outpatient (CLI) | payer OTHER | LOC: M WHC 12:43 | PROVIDERS: ATTEND Advanced Practice Midwife | DX: Z12.31 Encounter for screening mammogram for malignant neoplasm of breast (principal); Z13.820 Encounter for screening for osteoporosis ==

== ENCOUNTER → 2021-10-28 | Outpatient (CLI) | payer OTHER | LOC: M RAD 10:39 | PROVIDERS: ATTEND Urology | DX: N20.0 Calculus of kidney (principal) ==

== ENCOUNTER → 2022-09-14 | Outpatient (CLI) | payer OTHER ==
[~2022-09-14] MED LIST changes: +CHLO125TA; +LIDOCAINE 1% MDV 20ML VIAL As Ordered ONE
[2022-09-14 12:36] VITALS: BP 132/78
== END ==
LOC: M IRPRO 09:21
PROVIDERS: ATTEND Specialist
DX: E83.119 Hemochromatosis, unspecified (principal)

== ENCOUNTER → 2022-11-02 | Outpatient (CLI) | payer OTHER ==
[~2022-11-02] MED LIST changes: -LIDOCAINE 1% MDV 20ML VIAL As Ordered ONE
== END ==
LOC: M WHC 12:23
PROVIDERS: ATTEND Obstetrics & Gynecology
DX: Z12.31 Encounter for screening mammogram for malignant neoplasm of breast (principal)

== ENCOUNTER → 2022-11-02 | Outpatient (CLI) | payer OTHER | LOC: M RAD 11:35 | PROVIDERS: ATTEND Urology | DX: N20.0 Calculus of kidney (principal) ==

== ENCOUNTER → 2022-11-15 | Outpatient (CLI) | payer OTHER | LOC: M PLAIMG 08:36 | PROVIDERS: ATTEND Physician Assistant | DX: N20.0 Calculus of kidney (principal) ==

== ENCOUNTER → 2023-11-07 | Outpatient (CLI) | payer OTHER ==
[~2023-11-07] MED LIST changes: -OXYB5TAB10 PO; +OXYB5TAB14 PO
== END ==
LOC: M WHC 14:52
PROVIDERS: ATTEND Obstetrics & Gynecology
DX: Z12.31 Encounter for screening mammogram for malignant neoplasm of breast (principal); Z13.820 Encounter for screening for osteoporosis; M85.88 Other specified disorders of bone density and structure, other site

== ENCOUNTER → 2023-11-09 | Outpatient (CLI) | payer OTHER | LOC: M RAD 07:34 | PROVIDERS: ATTEND Physician Assistant | DX: N20.0 Calculus of kidney (principal) ==

== ENCOUNTER 2024-03-25 13:24 | Emergency (ER) | payer OTHER ==
[~2024-03-25] VITALS: Ht 160 cm; Wt 75.0 kg
[2024-03-25 14:59] LABS: BASO # 0.1 10^3/uL (0.0-0.2); BASO % 0.7 % (0.0-1.0); EOS # 0.2 10^3/uL (0.0-0.5); EOS % 1.6 % (0.0-3.0); HEMATOCRIT 44.8 % (36.0-47.0); HEMOGLOBIN 15.5 g/dl (12.0-15.5); LYMPH # 2.2 10^3/uL (1.5-5.0); LYMPH % 20.4 % (24.0-44.0); MEAN CORPUSCULAR HGB CONC 34.6 g/dl (32.0-36.5); MEAN CORPUSCULAR VOLUME 92.4 fl (80.0-96.0); MONO # 0.9 10^3/uL (0.0-0.8); NEUTROPHILS # 7.4 10^3/uL (1.5-8.5); NEUTROPHILS % 68.8 % (36.0-66.0); PLATELET COUNT, AUTOMATED 257 10^3/uL (150-450); RED BLOOD COUNT 4.85 10^6/uL (4.00-5.40); WHITE BLOOD COUNT 10.8 10^3/uL (4.0-10.0)
[2024-03-25 15:23] LABS: BLOOD UREA NITROGEN 17 MG/DL (9-23); CALCIUM LEVEL 9.7 MG/DL (8.5-10.1); CARBON DIOXIDE LEVEL 31 MMOL/L (20-31); CHLORIDE LEVEL 106 MMOL/L (98-107); CREATININE FOR GFR 0.91 MG/DL (0.55-1.30); GLOMERULAR FILTRATION RATE > 60.0 (>51); GLUCOSE, FASTING 87 MG/DL (60-100); SODIUM LEVEL 142 MMOL/L (136-145)
[2024-03-25] MEDS: valACYclovir HCL 500 MG TAB PO ONE (15:39)
[2024-03-25] MEDS: predniSONE 20 MG TAB PO ONE (15:40)
[2024-03-25] MEDS ORDERED: VALT1TAB PO (15:56)
[2024-03-25] MEDS ORDERED: ARTIDRO4 OD (15:56)
[2024-03-25] MEDS ORDERED: PRED20TA PO (15:56)
[2024-03-25] MEDS ORDERED: MINE3.5O12 OD (15:56)
[2024-03-25 17:00] VITALS: BP 149/96; TEMP 98; O2SAT 97
== END 2024-03-25 17:20 | disposition home or self-care (01) ==
LOC: M ED 13:24 → EDBD 13:24 → M ED 17:20
DX: G51.0 Bell's palsy (principal); I10 Essential (primary) hypertension; E78.5 Hyperlipidemia, unspecified; Z87.442 Personal history of urinary calculi; Z79.899 Other long term (current) drug therapy; Z88.5 Allergy status to narcotic agent
CPT/HCPCS: 70450; 80048; 85025; 86618; 99284; J7512

== ENCOUNTER → 2024-05-24 | Outpatient (CLI) | payer OTHER ==
[~2024-05-24] MED LIST changes: +ARTIDRO4 OD; +MINE3.5O12 OD; +PRED20TA PO; +VALT1TAB PO
== END ==
LOC: M RAD 09:17
PROVIDERS: ATTEND Registered Nurse
DX: M54.6 Pain in thoracic spine (principal)

== ENCOUNTER → 2024-08-30 | Outpatient (CLI) | payer OTHER | LOC: M RAD 08:42 | PROVIDERS: ATTEND Registered Nurse | DX: R10.11 Right upper quadrant pain (principal) ==

== ENCOUNTER → 2025-01-18 | Outpatient (REF) | payer OTHER ==
[~2025-01-18] MED LIST changes: -FLOM0.4C39 PO; +TAMS-18 PO
[2025-01-18 15:13] LABS: Trichomonas vaginalis (AMP) NOT DETECTED (NEGATIVE)
[2025-01-18 15:37] LABS: GC DNA AMPLIFICATION NEGATIVE (NEGATIVE)
== END ==
LOC: M LAB REF 13:46
PROVIDERS: ATTEND Physician Assistant
DX: N76.0 Acute vaginitis (principal)

== ENCOUNTER → 2025-03-18 | Outpatient (REF) | payer OTHER ==
[~2025-03-18] MED LIST changes: -IBUP1TAB6 PO; +SFHIBU600 PO
[2025-03-18 18:13] LABS: APPEARANCE, URINE CLEAR (CLEAR); BACTERIA, URINE AUTO NEGATIVE (NEGATIVE); BILIRUBIN, URINE AUTO NEGATIVE (NEGATIVE); BLOOD, URINE BLOOD 1+ (NEGATIVE); CALCIUM OXALATE CRYSTALS SMALL; GLUCOSE, URINE (UA) AUTO NEGATIVE (NEGATIVE); KETONE, URINE AUTO NEGATIVE (NEGATIVE); LEUKOCYTE ESTERASE, URINE AUTO TRACE (NEGATIVE); MUCUS, URINE SMALL (NEGATIVE); NITRITE, URINE AUTO NEGATIVE (NEGATIVE); PROTEIN, URINE AUTO NEGATIVE (NEGATIVE); RBC, URINE AUTO 4 /HPF (0-3); SPECIFIC GRAVITY URINE AUTO 1.016 (1.002-1.035); SQUAMOUS EPITHELIAL CELL UR AU 5 /HPF (0-6); UROBILINOGEN, URINE AUTO 0.2 mg/dL (0.0-2.0); WBC, URINE AUTO 5 /HPF (0-3)
[2025-03-18 18:14] LABS: ALT/SGPT 30.0 U/L (7.0-40); AST/SGOT 25.0 U/L (<34); CALCIUM LEVEL 9.6 MG/DL (8.5-10.1); CARBON DIOXIDE LEVEL 28.0 MMOL/L (20-31); CHLORIDE LEVEL 107.0 MMOL/L (98-107); CHOLESTEROL LEVEL 176.0 MG/DL (<200); CHOLESTEROL RISK RATIO 3.14 (<5); CREATININE FOR GFR 0.83 MG/DL (0.55-1.30); GLOMERULAR FILTRATION RATE 82.2 (>51); LDL CHOLESTEROL 90.9 MG/DL (<100); NON-HDL-C 120.1 MG/DL; POTASSIUM SERUM 4.4 MMOL/L (3.5-5.1); SODIUM LEVEL 145.0 MMOL/L (136-145); TRIGLYCERIDES LEVEL 146.0 MG/DL (<150)
[2025-03-18 18:16] LABS: TOTAL 25(OH) VITAMIN D 32.4 NG/ML (20.0-100.0)
[2025-03-18 18:17] LABS: BASO # 0.1 10^3/uL (0.0-0.2); BASO % 1.0 % (0.0-1.0); EOS # 0.2 10^3/uL (0.0-0.5); EOS % 1.6 % (0.0-3.0); LYMPH # 1.8 10^3/uL (1.5-5.0); LYMPH % 18.8 % (24.0-44.0); MONO # 0.6 10^3/uL (0.0-0.8); MONO % 5.8 % (2.0-8.0); NEUTROPHILS # 6.8 10^3/uL (1.5-8.5); NEUTROPHILS % 72.2 % (36.0-66.0); PLATELET COUNT, AUTOMATED 246 10^3/uL (150-450)
[2025-03-18 18:43] LABS: ESTIMATED AVERAGE GLUCOSE 111.0 MG/DL (60-110)
== END ==
LOC: M SFHCLERA 09:59
PROVIDERS: ATTEND Internal Medicine
DX: Z00.00 Encounter for general adult medical examination without abnormal findings (principal); I10 Essential (primary) hypertension

== ENCOUNTER → 2025-05-04 | Outpatient (REF) | payer OTHER ==
[2025-05-04 19:08] LABS: Trichomonas vaginalis (AMP) NOT DETECTED (NEGATIVE)
== END ==
LOC: M LAB REF 17:45
PROVIDERS: ATTEND Physician Assistant
DX: R30.0 Dysuria (principal); Z11.3 Encounter for screening for infections with a predominantly sexual mode of transmission; Z11.2 Encounter for screening for other bacterial diseases